=== PATIENT | female | born 1950 | race Caucasian/White ===

== ENCOUNTER 2020-08-17 10:00 | Outpatient (REF) | payer MEDICARE, SELFPAY ==
[2020-08-17 11:39] LABS: Estimated Average Glucose 123 mg/dL; Hemoglobin A1c % 5.9 %
[2020-08-17 12:22] LABS: Thyroid Stimulating Hormone 1.01 mIU/mL (0.32-4.0)
== END 2020-08-17 10:01 | disposition home or self-care (01) ==
LOC: HO.MANLDS 10:00
PROVIDERS: PCP Physician Assistant; Visit Provider Physician Assistant
DX: Z00.00 Encounter for general adult medical examination without abnormal findings (principal)
CPT/HCPCS: 83036; 84439; 84443

== ENCOUNTER 2020-11-14 11:40 | Outpatient (REF) | payer MEDICARE, SELFPAY ==
[2020-11-14 13:35] LABS: Alanine Aminotransferase 11 U/L (0-31); Albumin Level 4.1 g/dL (3.5-5.0); Alkaline Phosphatase 91 U/L (39-117); Anion Gap 12 (12-20); Aspartate Amino Transferase 16 U/L (5-31); Bilirubin Total 0.6 mg/dL (0.0-1.0); Blood Urea Nitrogen 9 mg/dL (9-16); Calcium 9.1 mg/dL (8.4-10.2); Carbon Dioxide 29 mmol/L (22-29); Chloride 105 mmol/L (96-108); Estimated Glomerular Filt Rate > 60; Glucose Random 114 mg/dL (60-115); Potassium 4.1 mmol/L (3.3-5.1); Sodium 142 mmol/L (135-145); Total Protein 6.4 g/dL (6.5-8.0)
[2020-11-14 14:20] LABS: Estimated Average Glucose 114 mg/dL; Hemoglobin A1c % 5.6 %
== END 2020-11-14 11:41 | disposition home or self-care (01) ==
LOC: HO.MANLR 11:40
PROVIDERS: PCP Internal Medicine; Visit Provider Physician Assistant
DX: E11.9 Type 2 diabetes mellitus without complications (principal)
CPT/HCPCS: 36415; 80053; 83036

== ENCOUNTER 2021-03-12 11:49 | Outpatient (REF) | payer MEDICARE, SELFPAY ==
[2021-03-12 13:49] LABS: Estimated Average Glucose 120 mg/dL; Hemoglobin A1c % 5.8 %
[2021-03-12 14:00] LABS: Alanine Aminotransferase 14 U/L (0-31); Albumin Level 4.4 g/dL (3.5-5.0); Alkaline Phosphatase 104 U/L (39-117); Anion Gap 13 (12-20); Aspartate Amino Transferase 20 U/L (5-31); Bilirubin Total 0.6 mg/dL (0.0-1.0); Blood Urea Nitrogen 9 mg/dL (9-16); Calcium 9.6 mg/dL (8.4-10.2); Carbon Dioxide 28 mmol/L (22-29); Chloride 105 mmol/L (96-108); Estimated Glomerular Filt Rate > 60; Glucose Fasting 129 mg/dL (60-99); Potassium 4.1 mmol/L (3.3-5.1); Sodium 142 mmol/L (135-145); Total Protein 6.8 g/dL (6.5-8.0)
== END 2021-03-12 11:50 | disposition home or self-care (01) ==
LOC: HO.MANLDS 11:49
PROVIDERS: PCP Internal Medicine; Visit Provider Physician Assistant
DX: E11.9 Type 2 diabetes mellitus without complications (principal)
CPT/HCPCS: 36415; 80053; 83036

== ENCOUNTER 2021-06-19 13:35 | Outpatient (REF) | payer MEDICARE, SELFPAY ==
[2021-06-19 18:18] LABS: Estimated Average Glucose 117 mg/dL; Hemoglobin A1c % 5.7 %
== END 2021-06-19 13:36 | disposition home or self-care (01) ==
LOC: HO.MANLDS 13:35
PROVIDERS: PCP Physician Assistant; Visit Provider Physician Assistant
DX: E11.9 Type 2 diabetes mellitus without complications (principal)
CPT/HCPCS: 36415; 83036

== ENCOUNTER 2021-12-17 10:17 | Outpatient (REF) | payer MEDICARE, SELFPAY ==
[2021-12-17 11:44] LABS: Estimated Average Glucose 117 mg/dL; Hemoglobin A1c % 5.7 %
[2021-12-17 12:26] LABS: Alanine Aminotransferase 14 U/L (0-31); Albumin Level 4.2 g/dL (3.5-5.0); Alkaline Phosphatase 84 U/L (39-117); Anion Gap 12 (12-20); Aspartate Amino Transferase 23 U/L (5-31); Bilirubin Total 0.7 mg/dL (0.0-1.0); Blood Urea Nitrogen 8 mg/dL (9-16); Calcium 9.7 mg/dL (8.4-10.2); Carbon Dioxide 31 mmol/L (22-29); Chloride 105 mmol/L (96-108); Estimated Glomerular Filt Rate > 60; Glucose Random 92 mg/dL (60-115); Potassium 4.7 mmol/L (3.3-5.1); Sodium 143 mmol/L (135-145); Total Protein 6.7 g/dL (6.5-8.0)
[2021-12-17 12:39] LABS: Thyroid Stimulating Hormone 0.02 uIU/mL (0.32-4.0)
== END 2021-12-17 10:18 | disposition home or self-care (01) ==
LOC: HO.MANLDS 10:17
PROVIDERS: PCP Physician Assistant; Visit Provider Physician Assistant
DX: E11.9 Type 2 diabetes mellitus without complications (principal); E03.9 Hypothyroidism, unspecified
CPT/HCPCS: 36415; 80053; 83036; 84439; 84443

== ENCOUNTER 2022-03-17 10:12 | Outpatient (REF) | payer MEDICARE, SELFPAY ==
[2022-03-17 11:57] LABS: Anion Gap 13 (12-20); Blood Urea Nitrogen 9 mg/dL (9-16); Calcium 9.5 mg/dL (8.4-10.2); Carbon Dioxide 28 mmol/L (22-29); Chloride 105 mmol/L (96-108); Estimated Glomerular Filt Rate > 60; Glucose Random 102 mg/dL (60-115); Potassium 4.7 mmol/L (3.3-5.1); Sodium 141 mmol/L (135-145)
== END 2022-03-17 10:13 | disposition home or self-care (01) ==
LOC: HO.MANLDS 10:12
PROVIDERS: Visit Provider Internal Medicine
DX: E87.5 Hyperkalemia (principal)
CPT/HCPCS: 36415; 80048

== ENCOUNTER 2022-08-01 10:26 | Outpatient (REF) | payer MEDICARE, SELFPAY ==
[2022-08-01 14:01] LABS: MANUAL DIFF FLAG NO
[2022-08-01 14:07] LABS: White Blood Count 6.5 X10*3/uL (4.8-10.8)
[2022-08-01 14:08] LABS: Basophils Absolute Auto 0.1 X10*3/uL (0.0-0.2); Basophils Percent Auto 1.2 % (0-2); Eosinophils Absolute Auto 0.1 X10*3/uL (0.0-0.4); Eosinophils Percent Auto 1.2 % (0-4); Hematocrit 39.3 % (37.0-47.0); Hemoglobin 12.5 g/dl (12.0-16.0); Imm Gran Abs Auto 0.02 X10*3/uL (0.00-0.03); Imm Gran Pct Auto 0.3 % (0.0-0.4); Lymphocytes Absolute Auto 1.8 X10*3/uL (1.2-4.9); Lymphocytes Percent Auto 27.9 % (20-40); Mean Corpuscular HGB Conc 31.8 g/dl (31.0-35.0); Mean Corpuscular Hemoglobin 29.1 pg (27.0-33.0); Mean Corpuscular Volume 91.4 fL (80.0-98.0); Monocytes Absolute Auto 0.5 X10*3/uL (0.1-1.2); Monocytes Percent Auto 7.1 % (2-11); Neutrophils Percent Auto 62.3 % (45-73); Platelet Count 309 X10*3/uL (160-400); Red Cell Distribution Width 13.6 % (11.0-16.0)
[2022-08-01 14:15] LABS: Estimated Average Glucose 117 mg/dL; Hemoglobin A1c % 5.7 %
[2022-08-01 14:22] LABS: Alanine Aminotransferase 11 U/L (0-31); Albumin Level 4.3 g/dL (3.5-5.0); Alkaline Phosphatase 99 U/L (39-117); Anion Gap 15 (12-20); Aspartate Amino Transferase 20 U/L (5-31); Bilirubin Total 0.6 mg/dL (0.0-1.0); Blood Urea Nitrogen 8 mg/dL (9-16); Calcium 9.7 mg/dL (8.4-10.2); Carbon Dioxide 31 mmol/L (22-29); Chloride 101 mmol/L (96-108); Cholesterol 173 mg/dL; Estimated Glomerular Filt Rate > 60; Glucose Random 85 mg/dL (60-115); HDL Cholesterol 83 mg/dL; LDL Cholesterol Calculated 64 mg/dl; Sodium 142 mmol/L (135-145); Total Protein 6.9 g/dL (6.5-8.0); Triglycerides 132 mg/dL
== END 2022-08-01 10:27 | disposition home or self-care (01) ==
LOC: HO.MANLDS 10:26
PROVIDERS: Visit Provider Physician Assistant
DX: Z13.89 Encounter for screening for other disorder (principal)
CPT/HCPCS: 36415; 80053; 80061; 83036; 85025

== ENCOUNTER 2023-03-16 11:28 | Outpatient (REF) | payer MEDICARE, SELFPAY ==
[2023-03-16 13:51] LABS: MANUAL DIFF FLAG NO
[2023-03-16 14:08] LABS: Basophils Absolute Auto 0.1 X10*3/uL (0.0-0.2); Basophils Percent Auto 1.5 % (0-2); Eosinophils Absolute Auto 0.2 X10*3/uL (0.0-0.4); Eosinophils Percent Auto 2.2 % (0-4); Hematocrit 41.3 % (37.0-47.0); Hemoglobin 12.9 g/dl (12.0-16.0); Imm Gran Abs Auto 0.02 X10*3/uL (0.00-0.03); Imm Gran Pct Auto 0.3 % (0.0-0.4); Lymphocytes Absolute Auto 1.8 X10*3/uL (1.2-4.9); Lymphocytes Percent Auto 23.7 % (20-40); Mean Corpuscular HGB Conc 31.2 g/dl (31.0-35.0); Mean Corpuscular Hemoglobin 27.5 pg (27.0-33.0); Mean Corpuscular Volume 88.1 fL (80.0-98.0); Mean Platelet Volume 10.1 fL (9.4-12.3); Monocytes Absolute Auto 0.6 X10*3/uL (0.1-1.2); Monocytes Percent Auto 7.1 % (2-11); Neutrophils Absolute Auto 5.1 x10*3/uL (2.0-8.3); Neutrophils Percent Auto 65.2 % (45-73); Platelet Count 309 X10*3/uL (160-400); Red Blood Count 4.69 X10*6/uL (4.20-5.50); Red Cell Distribution Width 14.8 % (11.0-16.0); White Blood Count 7.8 X10*3/uL (4.8-10.8)
[2023-03-16 14:30] LABS: Estimated Average Glucose 120 mg/dL; Hemoglobin A1c % 5.8 %
[2023-03-16 14:37] LABS: Alanine Aminotransferase 13 U/L (0-31); Alkaline Phosphatase 109 U/L (39-117); Anion Gap 14 (12-20); Aspartate Amino Transferase 19 U/L (5-31); Bilirubin Total 0.8 mg/dL (0.0-1.0); Blood Urea Nitrogen 9 mg/dL (9-16); Calcium 9.6 mg/dL (8.4-10.2); Carbon Dioxide 30 mmol/L (22-29); Chloride 106 mmol/L (96-108); Cholesterol 180 mg/dL; Estimated Glomerular Filt Rate > 60; Glucose Random 96 mg/dL (60-115); HDL Cholesterol 83 mg/dL; LDL Cholesterol Calculated 72 mg/dl; Potassium 5.8 mmol/L (3.3-5.1); Sodium 144 mmol/L (135-145); Total Protein 6.7 g/dL (6.5-8.0); Triglycerides 129 mg/dL
== END 2023-03-16 11:29 | disposition home or self-care (01) ==
LOC: HO.MANLDS 11:28
PROVIDERS: Visit Provider Physician Assistant
DX: E11.9 Type 2 diabetes mellitus without complications (principal); E78.2 Mixed hyperlipidemia
CPT/HCPCS: 36415; 80053; 80061; 83036; 85025

== ENCOUNTER 2023-03-20 11:57 | Outpatient (REF) | payer MEDICARE, SELFPAY ==
[2023-03-20 14:03] LABS: Alanine Aminotransferase 11 U/L (0-31); Alkaline Phosphatase 106 U/L (39-117); Anion Gap 13 (12-20); Aspartate Amino Transferase 18 U/L (5-31); Bilirubin Total 0.7 mg/dL (0.0-1.0); Blood Urea Nitrogen 7 mg/dL (9-16); Calcium 9.7 mg/dL (8.4-10.2); Carbon Dioxide 30 mmol/L (22-29); Chloride 102 mmol/L (96-108); Estimated Glomerular Filt Rate > 60; Glucose Random 96 mg/dL (60-115); Potassium 4.4 mmol/L (3.3-5.1); Sodium 141 mmol/L (135-145); Total Protein 6.7 g/dL (6.5-8.0)
== END 2023-03-20 11:58 | disposition home or self-care (01) ==
LOC: HO.MANLDS 11:57
PROVIDERS: Visit Provider Physician Assistant
DX: E11.9 Type 2 diabetes mellitus without complications (principal); E78.2 Mixed hyperlipidemia
CPT/HCPCS: 36415; 80053

== ENCOUNTER 2023-05-19 10:22 | Outpatient (REF) | payer MEDICARE, SELFPAY ==
[2023-05-19 13:18] LABS: MANUAL DIFF FLAG NO
[2023-05-19 14:03] LABS: Basophils Absolute Auto 0.1 X10*3/uL (0.0-0.2); Basophils Percent Auto 1.3 % (0-2); Eosinophils Absolute Auto 0.1 X10*3/uL (0.0-0.4); Eosinophils Percent Auto 1.1 % (0-4); Hematocrit 42.1 % (37.0-47.0); Hemoglobin 12.9 g/dl (12.0-16.0); Imm Gran Abs Auto 0.02 X10*3/uL (0.00-0.03); Imm Gran Pct Auto 0.3 % (0.0-0.4); Lymphocytes Absolute Auto 1.5 X10*3/uL (1.2-4.9); Lymphocytes Percent Auto 24.6 % (20-40); Mean Corpuscular HGB Conc 30.6 g/dl (31.0-35.0); Mean Corpuscular Hemoglobin 27.6 pg (27.0-33.0); Monocytes Absolute Auto 0.4 X10*3/uL (0.1-1.2); Monocytes Percent Auto 6.4 % (2-11); Neutrophils Absolute Auto 4.1 x10*3/uL (2.0-8.3); Neutrophils Percent Auto 66.3 % (45-73); Platelet Count 322 X10*3/uL (160-400); Red Blood Count 4.68 X10*6/uL (4.20-5.50); Red Cell Distribution Width 15.1 % (11.0-16.0); White Blood Count 6.1 X10*3/uL (4.8-10.8)
[2023-05-19 14:13] LABS: Alanine Aminotransferase 17 U/L (0-31); Alkaline Phosphatase 96 U/L (39-117); Anion Gap 13 (12-20); Aspartate Amino Transferase 19 U/L (5-31); Bilirubin Total 0.4 mg/dL (0.0-1.0); Blood Urea Nitrogen 9 mg/dL (9-16); Calcium 9.9 mg/dL (8.4-10.2); Carbon Dioxide 29 mmol/L (22-29); Chloride 105 mmol/L (96-108); Estimated Glomerular Filt Rate > 60; Glucose Random 130 mg/dL (60-115); Potassium 4.3 mmol/L (3.3-5.1); Sodium 143 mmol/L (135-145); Total Protein 7.2 g/dL (6.5-8.0)
[2023-05-21 15:03] LABS: A. Phagocytphilium DNA,RT-PCR NOT DETECTED (NOT DETECTED); Babesia Microti DNA, RT-PCR NOT DETECTED (NOT DETECTED); Borrelia Miyamotoi,DNA RT-PCR NOT DETECTED (NOT DETECTED); E.Chaffeensis DNA RT-PCR NOT DETECTED (NOT DETECTED); Lyme(Borrelia ssp)DNA RT-PCR NOT DETECTED (NOT DETECTED)
[2023-05-23 18:22] LABS: Spotted Fever Group IgG Not Detected (Not Detected); Spotted Fever Group IgM Not Detected (Not Detected); Typhus Fever Group IgG Not Detected (Not Detected); Typhus Fever Group IgM Not Detected (Not Detected)
== END 2023-05-19 10:23 | disposition home or self-care (01) ==
LOC: HO.MANLDS 10:22
PROVIDERS: Visit Provider Physician Assistant
DX: R50.81 Fever presenting with conditions classified elsewhere (principal)
CPT/HCPCS: 36415; 80053; 85025; 86757; 87798; 87801

== ENCOUNTER 2023-09-15 11:01 | Outpatient (REF) | payer MEDICARE, SELFPAY ==
[2023-09-15 13:21] LABS: MANUAL DIFF FLAG NO
[2023-09-15 13:35] LABS: Basophils Absolute Auto 0.1 X10*3/uL (0.0-0.2); Basophils Percent Auto 0.9 % (0-2); Eosinophils Percent Auto 0.5 % (0-4); Hemoglobin 9.1 g/dl (12.0-16.0); Imm Gran Abs Auto 0.03 X10*3/uL (0.00-0.03); Imm Gran Pct Auto 0.4 % (0.0-0.4); Lymphocytes Absolute Auto 1.5 X10*3/uL (1.2-4.9); Lymphocytes Percent Auto 17.8 % (20-40); Mean Corpuscular HGB Conc 29.4 g/dl (31.0-35.0); Mean Corpuscular Volume 85.2 fL (80.0-98.0); Mean Platelet Volume 9.6 fL (9.4-12.3); Monocytes Absolute Auto 0.5 X10*3/uL (0.1-1.2); Neutrophils Absolute Auto 6.3 x10*3/uL (2.0-8.3); Neutrophils Percent Auto 74.4 % (45-73); Platelet Count 429 X10*3/uL (160-400); Red Blood Count 3.64 X10*6/uL (4.20-5.50); Red Cell Distribution Width 14.9 % (11.0-16.0); White Blood Count 8.5 X10*3/uL (4.8-10.8)
[2023-09-15 13:43] LABS: Estimated Average Glucose 128 mg/dL; Hemoglobin A1c % 6.1 % (<6.0)
[2023-09-15 13:57] LABS: Alanine Aminotransferase 12 U/L (0-31); Albumin Level 3.4 g/dL (3.5-5.0); Alkaline Phosphatase 87 U/L (39-117); Anion Gap 14 (12-20); Aspartate Amino Transferase 24 U/L (5-31); Bilirubin Total 0.5 mg/dL (0.0-1.0); Blood Urea Nitrogen 6 mg/dL (9-16); Calcium 9.4 mg/dL (8.4-10.2); Carbon Dioxide 27 mmol/L (22-29); Chloride 102 mmol/L (96-108); Cholesterol 126 mg/dL (<200); Estimated Glomerular Filt Rate > 60; Glucose Random 101 mg/dL (60-115); HDL Cholesterol 68 mg/dL (>40); LDL Cholesterol Calculated 42 mg/dL (<100); Potassium 3.7 mmol/L (3.3-5.1); Sodium 139 mmol/L (135-145); Total Protein 7.8 g/dL (6.5-8.0); Triglycerides 81 mg/dL (<150)
[2023-09-15 14:26] LABS: Free T4 (Free Thyroxine) 1.14 ng/dL (0.71-1.85); Thyroid Stimulating Hormone 6.14 uIU/mL (0.32-4.0)
== END 2023-09-15 11:02 | disposition home or self-care (01) ==
LOC: HO.MANLDS 11:01
PROVIDERS: Visit Provider Physician Assistant
DX: E11.9 Type 2 diabetes mellitus without complications (principal); E03.8 Other specified hypothyroidism
CPT/HCPCS: 36415; 80053; 80061; 83036; 84439; 84443; 85025

== ENCOUNTER 2023-11-02 10:27 | Outpatient (REF) | payer MEDICARE, SELFPAY ==
[2023-11-02 13:16] LABS: Uric Acid 4.3 mg/dL (2.4-5.7)
== END 2023-11-02 10:28 | disposition home or self-care (01) ==
LOC: HO.MANLDS 10:27
PROVIDERS: Visit Provider Physician Assistant
DX: M10.072 Idiopathic gout, left ankle and foot (principal)
CPT/HCPCS: 36415; 84550

== ENCOUNTER 2024-12-20 11:55 | Outpatient (REF) | payer MEDICARE, SELFPAY ==
[2024-12-20 13:25] LABS: MANUAL DIFF FLAG NO
[2024-12-20 13:50] LABS: Basophils Absolute Auto 0.1 X10*3/uL (0.0-0.2); Basophils Percent Auto 1.7 % (0-2); Eosinophils Absolute Auto 0.1 X10*3/uL (0.0-0.4); Eosinophils Percent Auto 1.3 % (0-4); Hematocrit 23.8 % (37.0-47.0); Imm Gran Abs Auto 0.02 X10*3/uL (0.00-0.03); Imm Gran Pct Auto 0.3 % (0.0-0.4); Lymphocytes Absolute Auto 1.1 X10*3/uL (1.2-4.9); Mean Corpuscular HGB Conc 26.5 g/dl (31.0-35.0); Mean Corpuscular Hemoglobin 17.8 pg (27.0-33.0); Mean Corpuscular Volume 67.2 fL (80.0-98.0); Mean Platelet Volume 9.9 fL (9.4-12.3); Monocytes Absolute Auto 0.4 X10*3/uL (0.1-1.2); Monocytes Percent Auto 6.1 % (2-11); Neutrophils Absolute Auto 5.1 x10*3/uL (2.0-8.3); Neutrophils Percent Auto 74.6 % (45-73); Platelet Count 449 X10*3/uL (160-400); Red Blood Count 3.54 X10*6/uL (4.20-5.50); Red Cell Distribution Width 19.2 % (11.0-16.0); White Blood Count 6.9 X10*3/uL (4.8-10.8)
[2024-12-20 13:56] LABS: Hemoglobin 6.3 g/dl (12.0-16.0)
[2024-12-20 14:00] LABS: Estimated Average Glucose 137 mg/dL; Hemoglobin A1c % 6.4 % (<6.0)
[2024-12-20 14:37] LABS: Alanine Aminotransferase 10 U/L (0-31); Alkaline Phosphatase 104 U/L (39-117); Anion Gap 11 (12-20); Aspartate Amino Transferase 22 U/L (5-31); Bilirubin Total 0.8 mg/dL (0.0-1.0); Blood Urea Nitrogen 8 mg/dL (9-16); Calcium 9.1 mg/dL (8.4-10.2); Carbon Dioxide 27 mmol/L (22-29); Chloride 110 mmol/L (96-108); Cholesterol 122 mg/dL (<200); Estimated Glomerular Filt Rate > 60; Glucose Random 116 mg/dL (60-115); HDL Cholesterol 61 mg/dL (>40); LDL Cholesterol Calculated 44 mg/dL (<100); Potassium 3.7 mmol/L (3.3-5.1); Sodium 144 mmol/L (135-145); Total Protein 7.5 g/dL (6.5-8.0); Triglycerides 87 mg/dL (<150)
--- OUTSIDE RECORDS SUMMARY | 2024-12-20 14:41 | XMS_ITS | Data Portability ---
Author Organization [facility] Service Address [address] [place] [address] Assessment Encounter Date Assessment Date Assessment LastModified by Organization Details LastModified Time 10/13/2023 10/13/2023 Patient agreed and verbally consents to this audio and video Telehealth appt via a secure platform [email or web address] Not available 10/13/2023 14:21:57 Plan of Treatment Reminders Order Date Submit Date Provider Last Modified By Organization Details Last Modified Time Details Appointments ANNUAL EXAM 2024 01:30P RANJANA TYLER Not available Not available Not available Lab CMP, serum or plasma 2023 024 [facility], [address] [place] [address], [id number], 03/28/2024 13:48:31 CBC w/ auto diff 2023 024 [facility], [address] [place] [address], [id number], 03/28/2024 13:48:31 lipid panel, blood 2023 024 [facility], [address] [place] [address], [address], 03/28/2024 13:48:31 vitamin D, 25-hydrox y, total, serum 2023 024 [facility], [address] [place] [address], [id number], 03/28/2024 13:48:30 TSH + free T4, serum 2023 024 [facility], [address] [place] [address], [address], 03/28/2024 13:48:31 hemoglobi n A1c, QN, blood 2023 024 [facility], [address] [place] [address], [address], 03/28/2024 13:48:30 uric acid, serum or plasma 2023 024 [facility], [address] [place] [address], [address], 11/03/2023 11:45:58 TSH + free T4, serum 2022 023 [facility], [address] [place] [address], [address], 08/11/2023 15:25:46 CBC w/ auto diff 2022 023 [facility], [address] [place] [address], [address], 05/20/2023 12:04:55 CMP, serum or plasma 2022 023 [facility], [address] [place] [address], [id number], 05/20/2023 12:04:55 anaplasma phagocyto philum (hga/hge) igg+igm Ab, serum 2022 023 [facility], [address] [place] [address], [address], 05/19/2023 10:20:39 ehrlichia chaffeens is, igg+igm Ab, serum 2022 023 [facility], [address] [place] [address], [address], 05/19/2023 10:20:39 lyme disease igg+igm, serum, reflex western blot 2022 023 [facility], [address] [place] [address], [address], 05/22/2023 12:39:25 Rickettsi a rickettsi i IgG Ab, QL, IA, Serum or Plasma 2022 023 [facility], [address] [place] [address], [id number], 05/19/2023 10:20:39 Referral None recorded. Procedures None recorded. Surgeries None recorded. Imaging None recorded. Medication Orders doxycycli ne hyclate 100 mg tablet 2022 023 [id number], [address] [place], [place], [id number], 08/11/2023 15:02:45 Patient TargetsNo targets recorded. Patient InstructionsNo instructions recorded. Reason for Referral None Reported. Results Created Date Observation Date Name Description Value Unit Range Abnormal Flag Note LastModifiedBy Organization Detail LastModifiedTime 09/02/20 23 09/02/2023 MAMMO , scree chasity, digit al, bilat eral No observ ation record ed. [email or web address] [facility] [address] [place], [address], 09/02/2023 17:51:31 04/18/20 24 04/18/2024 XR, wrist , 3 or more view No observ ation record ed. [email or web address] [facility] (Scheduling Dept) [address] [place], [address], 04/19/2024 13:54:07 09/15/20 24 09/15/2024 MAMMO , scree chasity, digit al, bilat eral No observ ation record ed. [email or web address] Not Available 2023 14:46:00 Result Notes None recorded. Problems Name Problem SNOMED Code Status Onset Date Resolution Date Notes Provider Name and Address Organization Details Recorded Time Hypothyro idism 49748637 Active 2020 Not Available [facility] 4 21:02:59 Hyperlipi demia 24912752 Active 2020 Not Available [facility] 4 21:02:59 Pain of left knee region 596286567692 109 Active 2021 Not Available [facility] 4 21:02:59 Osteoarth ritis of left knee joint 220223752508 109 Active 2021 Not Available [facility] 4 21:02:59 Pain of left knee joint 561666778810 107 Active 2022 Not Available [facility] 4 21:02:59 Fever with chills 909717516 Active 2022 Not Available [facility] 4 21:02:59 Generaliz ed rash 868893589 Active 2022 Not Available [facility] 4 21:02:59 Sepsis 36059167 Active 2022 Not Available [facility] 4 21:02:59 Insomnia 629574420 Active 2022 Not Available [facility] 4 21:02:59 Gout 44592882 Active 2023 RANJANA SANCHEZ [address] [place] [address], [address], [facility] 4 15:55:01 Prostheti c joint infection 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 Active 2023 RANJANA SANCHEZ [address] [place], [address], [facility] 4 16:01:18 Pain of right wrist 931737898767 100 Active 2023 RANJANA SANCHEZ [address] [place], [address], [facility] 4 10:32:19 Essential hypertens ion 72410275 Active 2017 Not Available [facility] 4 21:02:59 Obstructi ve sleep apnea syndrome 96300701 Active 2017 Not Available Replaced by [facility] 4 21:02:59 Metabolic syndrome X 847035074 Active 2017 Not Available Replaced by [facility] 4 21:02:59 Type 2 diabetes mellitus 30751189 Active 2017 Not Available Replaced by [facility] 4 21:02:59 Impaired fasting glycemia 706129104 Active 2017 Not Available Replaced by [facility] 4 21:02:59 BRCA2 gene mutation detected 250818208 Active 2017 Not Available Replaced by [facility] 4 21:02:59 Anxiety 04740032 Active 2017 Not Available Replaced by [facility] 4 21:02:59 Glaucoma 60228196 Active 2017 Not Available Replaced by [facility] 4 21:02:59 Problem Notes None recorded. Procedures Surgical History Date Name Laterality Status Provider Name and Address Organization Details Recorded Time 8 Colonoscopy completed [facility] 08/18/2018 11:29:44 Imaging Results Imaging Date Name Status LastModified by Organiz ation Details LastModified Time 09/02/2023 MAMMO, screening, digital, bilateral completed [email or web address] [facility] [address], [address], 09/02/2023 17:51:31 04/18/2024 XR, wrist, 3 or more view completed [email or web address] [facility] (Scheduling Dept) [address] [place], [address], 04/19/2024 13:54:07 09/15/2024 MAMMO, screening, digital, bilateral completed [email or web address] Information not available 09/15/2024 14:46:00 Procedure Notes None recorded. Medical Equipment None Reported. Allergies Allergen ID Allergen Name Allergen Category Reaction Reaction Severity Criticality Documentation Date Start Date Code Code System Note Provider Name and Address Organization Details Recorded Time 1665 diclofena c Not available anaphylax is Not available Not available 04/02/2018 3355 RxNorm [facility] 8 10:30:22 7714 nickel environme nt Not available Not available Not available 10/30/2023 99242 29 RxNorm Estela jimenez [facility] 4 15:38:38 Medications Name Sig Start Date Stop Date Status Note LastModified by Organization Details LastModified Time compound drug active Not Available Not Available Not Available metformin 500 mg tablet 03/18 completed Not Available Not Available Not Available anastrozole 1 mg tablet Take 1 tablet every day by oral route. 11/21 completed Not Available Not Available Not Available venlafaxine 75 mg tablet TAKE 1 TABLET DAILY active Not Available Not Available No t Available azithromyci n 250 mg tablet TAKE 2 TABLETS BY MOUTH ON DAY 1 THEN 1 TABLET ON DAYS 2 THROUGH 5 12/25 completed Not Available Not Available Not Available metoprolol succinate ER 50 mg tablet,exte nded release 24 hr TAKE 1 TABLET ONCE DAILY (TAKE CONSISTEN TLY WITH A MEAL OR ON AN EMPTY STOMACH) 12/25 completed Not Available Not Available Not Available Levoxyl 100 mcg tablet Take 1 tablet every day by oral route. 09/27 completed Not Available Not Available Not Available penicillin V potassium 500 mg tablet 10/13 completed Not Available Not Available Not Available amlodipine 5 mg tablet TAKE 1 TABLET DAILY 2024 active Not Available Not Available Not Avai lable sulfamethox azole 800 mg-trimetho prim 160 mg tablet TAKE 1 TABLET BY MOUTH TWICE DAILY FOR 2 DOSES 10/21 completed Not Available Not Available Not Available tramadol 50 mg tablet TAKE 1 TABLET BY MOUTH EVERY 8 HOURS NEEDED 10/21 completed Not Available Not Available Not Available acetaminoph en 500 mg tablet TAKE 2 TABLETS BY MOUTH EVERY 8 HOURS active Not Available Not Available No t Available ofloxacin 0.3 % ear drops INSTILL 10 DROPS TO LEFT EAR DAILY FOR 7 DAYS 10/30 completed Not Available Not Available Not Available famotidine 20 mg tablet 05/15 completed Not Available Not Available Not Available DOK 100 mg capsule TK ONE C PO BID 06/28 completed Not Available Not Available Not Available omeprazole 20 mg capsule,del ayed release 10/21 completed Not Available Not Available Not Available capsaicin 0.025 % topical cream APPLY TO THE AFFECTED AREA(S) BY TOPICAL ROUTE 3 TIMES PER DAY 05/19 completed Not Available Not Available Not Available zolpidem 5 mg tablet TAKE 1 TABLET BY MOUTH EVERY DAY 2024 active Not Available Not Available Not Avai lable Synthroid 112 mcg tablet TAKE 1 TABLET DAILY (DUE FOR BLOOD WORK) active Not Available Not Available No t Available gabapentin 100 mg capsule 10/21 completed Not Available Not Available Not Available metoprolol succinate ER 25 mg tablet,exte nded release 24 hr TAKE 1 TABLET DAILY IN ADDITION TO METOPROLO L 50 MG FOR A TOTAL OF 75 MG 12/25 completed Not Available Not Available Not Available Zestril 40 mg tablet TAKE 1 TABLET DAILY 12/20 completed Not Available Not Available Not Available ondansetron 4 mg disintegrat ing tablet 05/15 completed Not Available Not Available Not Available doxycycline hyclate 100 mg tablet TAKE 1 TABLET BY MOUTH TWICE DAILY FOR 5 DAYS 08/11 completed Not Available Not Available Not Available naproxen 500 mg tablet 10/21 completed Not Available Not Available Not Available amoxicillin 875 mg-potassiu m clavulanate 125 mg tablet 03/23 completed Not Available Not Available Not Available oxycodone 5 mg tablet TAKE 1 TABLET BY MOUTH EVERY 4 HOURS FOR 7 DAYS NEEDED 10/30 completed Not Available Not Available Not Available enoxaparin 40 mg/0.4 mL subcutaneou s syringe 10/30 completed Not Available Not Available Not Available rosuvastati n 10 mg tablet TAKE 1 TABLET DAILY active Not Available Not Available No t Available penicillin G pot 1 million unit/50 mL-dextrose intravenous piggyback Infuse 18 million units every 6 hours by intraveno us route. 10/30 completed Not Available Not Available Not Available magnesium 10/30 completed Not Available Not Available Not Available zinc 10/30 completed Not Available Not Available Not Available Vitamin D3 1000 units qd active Not Available Not Available No t Available Calcium 600 with Vitamin D3 qd active Not Available Not Available N ot Available GaviLyte-G 236 gram-22.74 gram-6.74 gram-5.86 gram oral solution 05/15 completed Not Available Not Available Not Available metoprolol succinate ER 50 mg capsule sprinkle, ext. release 24 hr Take 1 capsule every day by oral route. 04/27 completed Not Available Not Available Not Available Fluad Quad [id number](6 5yr up)(PF) 60 mcg (15 mcg x 4)/0.5mL IM syringe ADMINISTE R 0.5ML IN THE MUSCLE DIRECTED 02/20 completed Not Available Not Available Not Available Vitals Date Recorded Body height Body mass index (BMI) Body weight Heart rate Oxygen saturation Oxygen saturation in Arterial blood by Pulse oximetry Systolic blood pressure Diastolic blood pressure Provider Name and Address Organization Details Last Updated DateTime 3 165.1 cm 28.5 kg/m2 75034.3 g 86 /min 97 % 97 % 130 mm[Hg] 66 mm[Hg] Yaneth Banda [facility] 3 10:08:43 Date Recorded Body height Body mass index (BMI) Body weight Heart rate Oxygen saturation Oxygen saturation in Arterial blood by Pulse oximetry Systolic blood pressure Diastolic blood pressure Provider Name and Address Organization Details Last Updated DateTime 3 165.1 cm 28.6 kg/m2 31434.8 9 g 84 /min 97 % 97 % 128 mm[Hg] 72 mm[Hg] Rosalina Santiago [facility] 3 15:07:29 Date Recorded Body height Heart rate Oxygen saturation Oxygen saturation in Arterial blood by Pulse oximetry Systolic blood pressure Diastolic blood pressure Provider Name and Address Organization Details Last Updated DateTime 4 165.1 cm 62 /min 99 % 99 % 120 mm[Hg] 82 mm[Hg] Estela Marshall [facility] 4 15:41:41 Date Recorded Body height Body mass index (BMI) Body weight Heart rate Oxygen saturation Oxygen saturation in Arterial blood by Pulse oximetry Systolic blood pressure Diastolic blood pressure Provider Name and Address Organization Details Last Updated DateTime 4 165.1 cm 28.3 kg/m2 70445.7 g 81 /min 100 % 100 % 120 mm[Hg] 80 mm[Hg] Yaneth Banda [facility] 4 13:30:02 Social History Question Answer Notes LastModified by Organizat ion Details LastModified Time Tobacco Smoking Status Former Smoker Not Available Replaced by [facility] 08/14/2020 03:36:24 What Was The Date Of Your Most Recent Tobacco Screening? 03/28/2024 [email or web address] Information not available 03/28/2024 How Many Years Have You Smoked Tobacco? 30 [id number] Information not available 08/14/2020 Do You Or Have You Ever Used Any Other Forms Of Tobacco Or Nicotine? No [email or web address] Information not available 10/30/2023 Sex: Unknown Functional Status None recorded. Mental Status None recorded. Family History Nothing Reported. Medical History Condition Response Coronary Artery Disease N Other N Gout N Blood Diseases N Kidney Stones N Breast Cancer N Blood Transfusion N Lung Disease N Depression N COPD N Defects or Inherited Disease N Anxiety Disorder N Muscle, Joint, or Bone Problems N Obesity N Vision or Eye Problems N Arthritis N Infertility N Polyps N Mental Disorder N Cancer N Stroke N Varicosities N Endometriosis N Bladder or Kidney Problems N High Cholesterol N Liver Disease N Fibromyalgia N Headaches N Kidney Disease N Allergies/Hayfever N Heart Problems N Hospitalizations N Thyroid Problems N GI Problems N Eating Disorder N Skin Problems N Anemia N MRSA exposure N Constipation N Mental Illness N Diabetes N Ovarian Cancer N Seizures/Epilepsy N Tuberculosis N Congestive Heart Failure (CHF) N Eczema N Abuse/Domestic Violence N Diverticulitis N Asthma N Reflux/GERD N Hepatitis N Heart Disease N Pulmonary Embolism N Hypertension N Chicken Pox N Autism Spectrum Disorder (ASD) N Osteoporosis N Gynecological HistoryNo gynecological history recorded. Obstetrics History GPAL:G 0 P 0 0 0 0 Immunizations Vaccine Type Date Status Note Provider Nam e and Address Organization Details Recorded Time Influenza, split virus, quadrivalent, preservative 1 completed Not Available Replaced by [facility] 10/29/2023 21:02:59 Influenza, split virus, quadrivalent, preservative 2 completed Not Available Replaced by [facility] 10/29/2023 21:02:59 Pneumococcal conjugate PCV 13 8 completed Not Available Replaced by [facility] 10/29/2023 21:03:00 Influenza, split virus, quadrivalent, preservative 8 completed Not Available [facility] 10/29/2023 21:03:00 Influenza, split virus, quadrivalent, preservative 9 completed Not Available [facility] 10/29/2023 21:02:59 pneumococcal polysaccharide PPV23 9 completed Not Available [facility] 10/29/2023 21:03:00 Influenza, split virus, quadrivalent, preservative 0 completed Not Available [facility] 10/29/2023 21:03:00 Influenza, split virus, quadrivalent, preservative 0 completed Not Available [facility] 10/29/2023 21:03:00 COVID-19, mRNA, LNP-S, PF, 100 mcg/0.5mL dose or 50 mcg/0.25mL dose 1 completed Not Available [facility] 10/29/2023 21:03:00 COVID-19, mRNA, LNP-S, PF, 100 mcg/0.5mL dose or 50 mcg/0.25mL dose 1 completed Not Available Replaced by [facility] 10/29/2023 21:03:00 Past Encounters Encounter ID Performer Location Encounter Start Date Encounter Closed Date Diagnosis/Indication Diagnosis SNOMED-CT Code Diagnosis ICD10 Code Diagnosis Note [id number] January [facility] [address] [facility],[place] [address] 04/02/2018 10:17:56 04/02/2018 11:22:10 Hypothyroidism 11333508 E03.9 tsh elevated, will adjust the levothyrox ine from 100 to 112 Hypercholesterolemia 136 74220 E78.00 had stopped cholestero l med about a year ago cholestero l and LDL are elevated again Essential hypertension 53349116 I10 stable continue metoprolol , zestril Type 2 jj betes mellitus without complication 553874886 E11.9 very well controlled will skip a 3 month appointmen t as her dm is so well controlled f/u 6 months History of malignant neoplasm of breast 588132031 Z85.3 continues on anastrozol e without any reported sided effects Anxiety 33798686 F41.9 well controlled with [place]lafaxin e [id number] Yajaira [facility] [address] [facility],[place] [address] 09/27/2018 10:08:11 09/27/2018 10:47:46 Hypothyroidism 93893575 E03.9 thyroid normal. will continue 112 mcg dose Hypercholesterolemia 136 61767 E78.00 very well controlled with crestor Essential hypertension 26755976 I10 stable continue metoprolol , zestril Type 2 jj betes mellitus without complication 550543888 E11.9 well controlled , even despite poor diet habits History of malignant neoplasm of breast 849877163 Z85.3 continues on anastrozol e without any reported sided effects Anxiety 55525357 F41.9 well [place] [id number] [facility] [address] [facility],[place] [address] 11/05/2018 13:31:37 11/05/2018 14:10:49 Pre-surgery evaluation 709496591 Z01.818 patient is cleared for proposed cataract surgery of both her right and left lens. Per [facility] protocol she is deemed a low risk for this procedure. [id number] [facility] [address] [facility], [place] [address] 04/27/2019 13:26:46 04/27/2019 14:13:44 Hypothyroidism 82947357 E03.9 tsh elevated, will adjust the levothyrox ine from 100 to 112 Hypercholesterolemia 136 85097 E78.00 had stopped cholestero l med about a year ago cholestero l and LDL are elevated again Essential hypertension 78109491 I10 stable Type 2 jj betes mellitus without complication 685378561 E11.9 very well controlled previously History of malignant neoplasm of breast 562224275 Z85.3 continues on anastrozol e without any reported sided effects Anxiety 71082425 F41.9 well controlled with venlafaxin e Adult [facility] th examination 960912495 Z00.00 pt already scheduled for pneumovax Screening for osteoporosis 135257229 M85.80 Pain of ri ght ankle joint 3115485843 9294151 M25.571 Body mass index 30+ - obesity 804393485 Z68.34 [id number] [facility] [address] [facility], [place] [address] 10/25/2019 10:56:11 10/25/2019 11:46:52 Hypothyroidism 51902671 E03.9 normal as of 10/2019 Hypercholesterolemia 136 68356 E78.00 back on cholestero l med, with very good control Essential hypertension 97106380 I10 stable Type 2 jj betes mellitus without complication 791155131 E11.9 very well controlled History of malignant neoplasm of breast 423243322 Z85.3 continues on anastrozol e without any reported sided effects will continue until 10/2020 gets mammos at [facility] last done 05/2019 Anxiety 88131582 F41.9 well controlled with venlafaxin e Body mass index 30+ - obesity 105292379 Z68.34 [id number] RANJANA SANCHEZ [facility] [address] [facility] [address] 05/15/2020 10:19:53 05/15/2020 11:07:42 Adult health examination 998630717 Z00.00 needs to have TSH and A1c checked in three months Screening for cardiovascular system disease 868474026 Z13.6 already had her lipids done looked great doing really well Screening for malignant neoplasm of colon 453422079 Z12.11 was just seen in 2018 to have colonoscop y will be seen in three years, as she will go ever five years Screening for osteoporosis 570544721 Z13.820 just had bone density screening in 2019 she would like to wait to be rescreened in the future Screening mammography 24 653096 Z12.31 the patient had one last year in may has one scheduled for of this month [id number] RANJANA SANCHEZ [facility] [address] [facility] [address] 08/21/2020 10:24:43 08/21/2020 12:36:38 Essential hypertension 87516898 I10 BP elevated will do monitor Type 2 jj betes mellitus 77949616 E11.9 doing well started back on metformin after surgery Hypothyroidism 59148126 E03.9 continue 6 days instead of 7 [id number] RANJANA SANCHEZ [facility] [address] [facility],[place] [address] 11/21/2020 10:24:19 11/21/2020 11:10:55 Type 2 diabetes mellitus 13407365 E11.9 doing well started back on metformin after surgery Essential hypertension 97888106 I10 BP elevated will discuss medication at next appt Obstructiv e sleep apnea syndrome 55007335 G47.33 resolved with weight loss no longer uses CPAP [id number] RANJANA SANCHEZ [facility] [address] [facility],[place] [address] 03/18/2021 09:46:35 03/18/2021 10:23:57 Active or passive immunization 523803876 Z23 advised Adult heal th examination 369185723 Z00.00 needs to have TSH and A1c checked in three months Screening mammography 24 349016 Z12.31 needs repeat Heart murmur 47486917 R0 1.1 US for new murmur [id number] RANJANA SANCHEZ [facility] [address] [facility] [address] 04/24/2021 09:51:56 04/24/2021 11:57:58 Diastolic dysfunction 6728819 I51.9 will set up with cardiology for fu Aortic ana ve regurgitation 96238411 I35.1 [id number] RANJANA SANCHEZ [facility] [address] [facility] [address] 06/28/2021 08:55:30 06/28/2021 16:40:17 Essential hypertension 84820212 I10 BP elevated will discuss medication at next appt Type 2 jj betes mellitus 24680559 E11.9 excellent off of the medication Hypothyroidism 03409141 E03.9 continue 6 days instead of 7 Hyperlipidemia 30383812 E78.5 stablefoll ows with cardiology [id number] RANJANA SANCHEZ [facility] [address] [facility] [address] 12/25/2021 09:53:10 12/25/2021 16:49:49 Impaired fasting glycemia 868429303 R73.01 stable Hypothyroidism 52314351 E03.8 will reduce 5 days Type 2 jj betes mellitus 97258620 E11.9 excellent off of the medication Essential hypertension 30300585 I10 BP stable on recheck [id number] RANJANA SANCHEZ [facility] [address] [facility] [address] 01/20/2022 09:40:03 01/20/2022 11:38:15 Pain of left knee region 4168279272 05552 M25.562 will fu with XRs [id number] RANJANA SANCHEZ [facility] Internal Medicine [address] [facility] [address] 03/21/2022 08:51:36 03/21/2022 12:23:50 Active or passive immunization [id number] Z23 advised Adult heal th examination 227991513 Z00.00 needs to have TSH and A1c checked in three monthsBP is excellent [id number] RANJANA SANCHEZ [facility] Internal Medicine [address] [facility] [facility] [address] 04/16/2022 08:03:36 04/16/2022 10:54:00 Pre-surgery evaluation [id number] Z01.818 The patient was seen in the office today for pre-op evaluation . All medical conditions on patient's problem list were addressed and are currently stable, no interventi on needed at this time. Based on history and physical performed, the patient is cleared for surgery. Obstructiv e sleep apnea syndrome 40492253 G47.33 stable Type 2 jj betes mellitus 41137651 E11.9 stable Essential hypertension 31314913 I10 stable [id number] RANJANA SANCHEZ [facility] Internal Medicine [address] [facility],[place] [address] 10/21/2022 11:26:14 10/21/2022 13:50:57 Type 2 diabetes mellitus 61528271 E11.9 stable Essential hypertension 56120767 I10 stable Hyperlipidemia 50962669 E78.2 stablefoll ows with cardiology Anxiety 21015183 F41.1 stable [id number] RANJANA SANCHEZ [facility] Internal Medicine [address] [facility] [address] 03/23/2023 13:24:23 03/23/2023 14:43:32 Active or passive immunization 954179810 Z23 advised Adult heal th examination 202380807 Z00.00 BW is excellentB P is excellent Type 2 jj betes mellitus 37333895 E11.9 stable Pain of le ft knee joint 9400610853 93664 M25.562 needs ortho referral to Dr. Carlson who [facility] [id number] RANJANA SANCHEZ [facility] [address] [facility] [address] 05/19/2023 09:54:52 05/19/2023 11:38:24 Fever with chills 400890477 R50.81 fu with lab workwill call pt when results are in Generalized rash 9177097 06 R21 lotion, cortizone cream if needed [id number] RANJANA SANCHEZ [facility] [address] [facility] [address] 08/11/2023 14:53:06 08/11/2023 15:57:31 Sepsis 94924671 R65.20 stable Hypothyroidism 19236968 E03.8 will recheck levels in a few weeks to see if the affected by the infection [id number] RANJANA SANCHEZ [facility] Internal Medicine [address] [facility] [address] 10/13/2023 08:34:33 10/13/2023 15:51:17 Sepsis 26263278 R65.20 resolved Type 2 jj betes mellitus 35924649 E11.9 stable Insomnia 718549744 G47.0 9 stablecont inue on ambien [id number] RANJANA SANCHEZ [facility] [address] [facility] [address] 10/30/2023 15:32:09 10/30/2023 16:38:28 Gout 47866900 M10.072 will set up with uric acidhaving issues with big toe, left toe Osteoarthr itis of left knee joint [id number] 34408 M17.12 still seeing her OA L knee joint Prosthetic joint infection 247327899 T84.52XA following with ID and [id number] RANJANA SANCHEZ [facility] [address] [facility] [address] 03/28/2024 13:23:28 03/28/2024 16:17:45 Depression screening 496162173 Z13.31 0 Adult heal th examination 540616030 Z00.00 BW is excellentB P is excellent Health Concerns Section Related Observation LastModified by Organization Detai ls LastModified Time None Recorded Concern Status LastModified by Organization Details LastModified Time None Recorded Advance Directives Directive None Recorded Payers Encounter Date Sequence Insurance Name Policy Number Policy Samayoa Covered Member ID Samayoa Member ID Guarantor Name 05/19/2023 1 [facility] (MEDICARE REPLACEMENT/A DVANTAGE - PPO) [id number] Dixie Blunt [id number] Dixie Blunt 08/11/2023 1 [facility] (MEDICARE REPLACEMENT/A DVANTAGE - PPO) [id number] Dixie Mickey Merlene [id number] Dixie Boyle 10/13/2023 1 [facility] (MEDICARE REPLACEMENT/A DVANTAGE - PPO) [id number] Dixie Arevalo Merlene [id number] Dixie Boyle 10/30/2023 1 [facility] (MEDICARE REPLACEMENT/A DVANTAGE - PPO) [id number] Dixierichardson Blunt [id number] Dixie Boyle 03/28/2024 1 [facility] (MEDICARE REPLACEMENT/A DVANTAGE - PPO) [id number] Dixie Arevalo Merlene [id number] Dixie Blunt Notes Date Note Type Note Provider Name a nd Address Organization Details Recorded Time 3 text/html c/o rash the patient reports that on Thursday she started with fever (subjective; didn't get to take it as her thermometer is broken)has a rash on the left side over her torso along her breastmaculopapular, not pruriticcould be a viral rash?does endorse possibly having an infected belly button does have a perforated ear drumusing drops she has left from last timecont those will set up with lab work to r/o other possibly causes also given doxy for her umbilicus in the meantime RANJANA SANCHEZ [address] [facility], [place], [address], [facility] Internal Medicine 05/19/2023 10:24:19 3 text/html hospital f/u the patient reports that she is doing wellher energy level the patient has a PIC line inseeing [facility] once [facility] week has PT in house and then will be switching over to [facility] rehab medication in chart have been reviewed will have her recheck her thyroid levels again in a few weeks no feverno chillsno chest painno sobno calf painno diarrheano nausea RANJANA SANCHEZ [address] [facility], [place], [address], [facility] Internal Medicine 08/11/2023 15:32:30 4 text/html f/u medication check tele-med phone callpatient consents to phone call the patient is doing really well on the ambienthe patient can't sleep due to the pain in the knee contacted specialist in [place] about her kneestill has no ROMand with the septic joint we are being careful about who she sees will fu with more info if the take her case RANJANA SANCHEZ [address] [place], [address], [facility] Internal Medicine 10/13/2023 14:23:08 4 text/html f/u knee pain the patient is here for f/u of her kneeshe did see her ortho and the ID for another culture of her joint fluid the patient reports that she is noticing some mild improvementthe patient reports that she will still be seeing PT will continue to follow with patient and her progress no other changes currentlyno change in medications RANJANA SANCHEZ [address] [facility], [place], [address], [facility] Internal Medicine 10/30/2023 16:11:24 4 text/html Annual WellnessReported bypatient.Diet and Nutrition:healthy diet; discussed vitamin and supplement use; discussed portion control; discussed maintaining calcium balance; discussed diet improvement Fracture Risk:no history of fractures; no recent explained fracture; no sudden unexplained fractures; no previous musculoskeletal injuries Physical Activity:exercises on a regular basis; recent increase in physical activity; good physical condition Additional Lifestyle Factors:no tobacco use; no alcohol intake; stopped drinking alcohol Depression Risk:never feels sad, empty, or tearful; no loss of interest in activities; no significant changes in weight; no sleep disturbances or insomnia; no agitation; no loss of energy; no feelings of worthlessness or guilt; no thoughts of suicide; no history of depression; no history of mood disorders the patient is still having knee pain in the Left knee after the septic infectionthe ortho declined intervention due to the severity of her previous infectionthe patient is doing really with the sleep medicationwill continue on the medication RANJANA SANCHEZ [address] [place] [address], [place], [address], [facility] Internal [facility] 03/28/2024 14:10:10 OBGyn Episode No OBEpisode recorded.
[2024-12-20 15:21] LABS: Thyroid Stimulating Hormone 8.78 uIU/mL (0.32-4.0)
== END 2024-12-20 11:56 | disposition home or self-care (01) ==
LOC: HO.MANLDS 11:55
PROVIDERS: Visit Provider Physician Assistant
DX: Z00.00 Encounter for general adult medical examination without abnormal findings (principal); Z13.1 Encounter for screening for diabetes mellitus; Z13.6 Encounter for screening for cardiovascular disorders
CPT/HCPCS: 36415; 80053; 80061; 82306; 83036; 84436; 84443; 85025

== ENCOUNTER 2024-12-27 14:51 | Outpatient (REF) | payer MEDICARE, SELFPAY ==
[2024-12-27 18:40] LABS: MANUAL DIFF FLAG NO
[2024-12-27 19:06] LABS: Basophils Absolute Auto 0.1 X10*3/uL (0.0-0.2); Basophils Percent Auto 1.4 % (0-2); Eosinophils Absolute Auto 0.1 X10*3/uL (0.0-0.4); Eosinophils Percent Auto 0.8 % (0-4); Hematocrit 29.2 % (37.0-47.0); Hemoglobin 7.8 g/dl (12.0-16.0); Imm Gran Abs Auto 0.04 X10*3/uL (0.00-0.03); Imm Gran Pct Auto 0.4 % (0.0-0.4); Lymphocytes Absolute Auto 1.3 X10*3/uL (1.2-4.9); Lymphocytes Percent Auto 14.5 % (20-40); Mean Corpuscular HGB Conc 26.7 g/dl (31.0-35.0); Mean Corpuscular Hemoglobin 19.5 pg (27.0-33.0); Monocytes Absolute Auto 0.6 X10*3/uL (0.1-1.2); Monocytes Percent Auto 6.8 % (2-11); Neutrophils Absolute Auto 6.9 x10*3/uL (2.0-8.3); Neutrophils Percent Auto 76.1 % (45-73); Platelet Count 482 X10*3/uL (160-400); Red Cell Distribution Width 23.9 % (11.0-16.0); White Blood Count 9.1 X10*3/uL (4.8-10.8)
[2024-12-27 19:29] LABS: Iron 466 mcg/dL (30-160); Percent Iron Saturation 95 % (15-50); Total Iron Binding Capacity 491 mcg/dL (228-428); Unsaturated Iron Binding < 25 ug/dL
== END 2024-12-27 14:52 | disposition home or self-care (01) ==
LOC: HO.MANLDS 14:51
PROVIDERS: Visit Provider Physician Assistant
DX: D50.0 Iron deficiency anemia secondary to blood loss (chronic) (principal)
CPT/HCPCS: 36415; 83540; 85025

== ENCOUNTER 2025-09-20 14:11 | Outpatient (REF) | payer MEDICARE, SELFPAY ==
[2025-09-20 18:20] LABS: MANUAL DIFF FLAG NO
[2025-09-20 18:40] LABS: Hematocrit 43.8 % (37.0-47.0); Hemoglobin 13.8 g/dl (12.0-16.0); Imm Gran Abs Auto 0.02 X10*3/uL (0.00-0.03); Imm Gran Pct Auto 0.2 % (0.0-0.4); Lymphocytes Absolute Auto 1.3 X10*3/uL (1.2-4.9); Mean Corpuscular HGB Conc 31.5 g/dl (31.0-35.0); Mean Corpuscular Hemoglobin 28.1 pg (27.0-33.0); Mean Corpuscular Volume 89.2 fL (80.0-98.0); NRBC Abs Auto 0.000 X10*3/uL (0.0-0.012); NRBC Pct Auto 0.0 /100WBC (0.0-0.2); Platelet Count 273 X10*3/uL (160-400); Red Blood Count 4.91 X10*6/uL (4.20-5.50); White Blood Count 8.7 X10*3/uL (4.8-10.8)
[2025-09-20 18:56] LABS: Alanine Aminotransferase 15 U/L (0-31); Albumin Level 4.5 g/dL (3.5-5.0); Alkaline Phosphatase 111 U/L (39-117); Anion Gap 11 (12-20); Aspartate Amino Transferase 25 U/L (5-31); Blood Urea Nitrogen 10 mg/dL (9-16); Calcium 9.4 mg/dL (8.4-10.2); Carbon Dioxide 32 mmol/L (22-29); Chloride 104 mmol/L (96-108); Estimated Glomerular Filt Rate > 60; Iron 85 mcg/dL (30-160); Percent Iron Saturation 32 % (15-50); Potassium 3.9 mmol/L (3.3-5.1); Sodium 143 mmol/L (135-145); Total Iron Binding Capacity 269 mcg/dL (228-428); Total Protein 7.4 g/dL (6.5-8.0); Unsaturated Iron Binding 184 ug/dL
[2025-09-20 19:14] LABS: Ferritin 106 ng/mL (10-250)
[2025-09-20 19:20] LABS: Folate 5.3 ng/mL (> or = 4.0); Vitamin B12 1777 pg/mL (200-900)
[2025-09-20 20:32] LABS: Free T4 (Free Thyroxine) 0.85 ng/dL (0.71-1.85)
--- OUTSIDE RECORDS SUMMARY | 2025-09-20 22:09 | XMS_ITS | Encounter Summary ---
Author Organization [facility] Address [email or web address] [facility] [address] [place] [address] Phone Care Team Providers Care Hotel Clerk Name Role Phone Otilia Story MD Unavailable Obed Richardson DO Unavailable Dionte Carrillo ASSISTANT SOFTBALL COACH Unavailable Valerie Workman SOAKING TANK WORKER Unavailable Obed Richardson DO Primary Care Provider [phone] Encounter Details Date Type Department Care Team ([facility] st Contact Info) Description 03/21/2025 Transcribe Orders [facility] [address] [place] [address] Obed Richardson DO [address] [facility] [place] [address] [email or web address] Social History Tobacco Use Types Packs/Day Years Used Date Smoking Tobacco: Former Cigarettes Q uit: 11/09/2000 Smokeless Tobacco: Never Alcohol Use Standard Drinks/Week Comments No 0 (1 standard drink = 0.6 oz pur e alcohol) Home Health Assessment: Transportation Answer Date Recorded Lack of Transportation (Medical) No 09/18/2023 Lack of Transportation (Non-Medical) No 09/18/2023 Patient Unable or Declines to Respond No 09/18/2023 Education Answer Date Recorded Are you interested in more education? Not on frieda e 02/06/2023 Are you concerned about learning? Not on file 02/06/2023 No 02/06/2023 No 02/06/2023 Digital Access Answer Date Recorded No 03/08/2023 No 03/08/2023 Reliable internet access at home? Not on file 03/08/2023 Device with a working camera? Not on file Intimate Partner Violence Answer Date R ecorded Are you denied basic needs s uch as food, clothing, or medical care? No 01/27/2025 In the past 12 months have y ou been in a relationship with a person who hurts, threatens, or tries to control you? No 01/27/2025 Are you denied basic needs s uch as food, clothing, or medical care? No 01/27/2025 In the past 12 months have y ou been in a relationship with a person who hurts, threatens, or tries to control you? No 01/27/2025 Comments No Sex and Gender Information Value Date Recorded Sex Assigned at Female 07/13/2023 10:37 AM EDT Legal Sex Female 7:04 PM EST Gender Identity Female 07/13/2023 10:37 AM EDT Sexual Orientation Straight 07/13/2023 10 :37 AM EDT documented as of this encounter Plan of Treatment Upcoming Encounters Date Type Department Care Team (Late st Contact Info) Description 10/09/2025 1:30 PM EST Office Visit Orthopedics [address] [address] Carlos Marquez MD [address] [place] [address] [email or web address] documented as of this encounter Visit Diagnoses Not on filedocumented in this encounter Care Teams Hotel Clerk Relationship Specialty Start Date End Date Obed Richardson DO [address] [place] [address] PCP - General Internal Medicine 12/20/24 Otilia Story MD [address] [place] [address] [email or web address] Historical LMR Provider 02/23/15 Obed Richardson DO [address] [place] [address] [email or web address] Referring Physician Internal Medicine 01/08/16 Dionte Carrillo, ZACKARY [address] [place] [address] [email or web address] Practitioner Oncology 05/30/19 Valerie Workman, FRANTZ [address] [place] [address] [email or web address] Registered Nurse Family Medicine 06/04/20 documented as of this encounter Additional Source Comments The information contained in this document represents components of the legal health record. It is not the complete legal health record.[facility]
--- OUTSIDE RECORDS SUMMARY | 2025-09-20 22:09 | XMS_ITS | Encounter Summary ---
Author Organization [facility] Address [address] [place] [address] [place] [address] Phone Care Team Providers Care Legal File Clerk Name Role Phone Obed Richardson DO Primary Care Provider [phone] Amie Abad MD Unavailable [phone] Constance Tang MD Unavailable [phone] Otilia Story MD Unavailable [phone] Obed Richardson DO Unavailable Obed Richardson DO Unavailable Erich Greer MD Unavailable Shelley Peck CHEMIST ORGANIC Unavailable María Fletcher DO Unavailable Jono Garrett MD Unavailable Blanquita Aden CHEMIST ORGANIC Unavailable Erich Mireles MD Unavailable Debbi Crump DNP Unavailable [phone] Dionte Carrillo LINER ROLL CHANGER Unavailable Valerie Workman CHEMIST ORGANIC Unavailable Obed Richardson DO Primary Care Provider [phone] Encounter Details Date Type Department Care Team (Late Contact Info) Description 11/20/2017 Ancillary Orders [facility], X-Ray - [facility] [address] [place] [address] Amanda South CNP [address] [place] [address] [email or web address] Right ankle pain, unspecified chronicity Social History Tobacco Use Types Packs/Day Years Used Date Smoking Tobacco: Former Comments Unknown Sex and Gender Information Value Date Recorded Sex Assigned at Female 07/13/2023 10:37 AM EDT Legal Sex Female 7:04 PM EST Gender Identity Female 07/13/2023 10:37 AM EDT Sexual Orientation Straight 07/13/2023 10 :37 AM EDT documented as of this encounter Plan of Treatment Upcoming Encounters Date Type Department Care Team (Late Contact Info) Description 10/09/2025 1:30 PM EST Office Visit Orthopedics [place] [address] [place] [address] Carlos Marquez MD [address] [place] [address] documented as of this encounter Results * XR ANKLE 3 OR MORE VIEWS (RIGHT) (11/20/2017 10:39 AM EST) Anatomical Region Laterality Modality Ankle Right Radiographic Mckayla ging 11/20/2017 11:0 5 AM EST Impressions 11/20/2017 11:13 AM EST Status post ORIF. Osseous fusion of the distal fibula and tibia laterally. Mild degenerative changes at the ankle. No other explanation for pain. POS - [id number] Narrative 11/20/2017 11:13 AM EST HISTORY: Pain medially, status-post ORIF. COMPARISON: Left ankle x-rays 09/23/2006. FINDINGS: Orthopedic hardware from old ORIF remains in place within the distal fibula. Two screws remain in place through the medial malleolus. Hardware appears intact and does not appear significant changed in position from 09/23/2016. No suspicious lucencies or areas of sclerosis within the bones. Bony fusion between the distal aspect of the medial fibula and lateral tibial no evidence of acute fractures. No subluxations or dislocations. Mild marginal spurring at the tibiotalar joint. Mild joint space narrowing. Similar small plantar calcaneal spur. Mild progression of enthesopathy at the insertion of the Achilles tendon. Procedure Note Jimmy Garcia MD - 11/20/2017 HISTORY: Pain medially, status-post ORIF. COMPARISON: Left ankle x-rays 09/23/2006. FINDINGS: Orthopedic hardware from old ORIF remains in place within the distalfibula. Two screws remain in place through the medial malleolus.Hardware appears intact and does not appear significant changed inposition from 09/23/2016. No suspicious lucencies or areas of sclerosiswithin the bones. Bony fusion between the distal aspect of the medialfibula and lateral tibial no evidence of acute fractures. No subluxationsor dislocations. Mild marginal spurring at the tibiotalar joint. Mildjoint space narrowing. Similar small plantar calcaneal spur. Mildprogression of enthesopathy at the insertion of the Achilles tendon. IMPRESSION: Status post ORIF. Osseous fusion of the distal fibula and tibialaterally. Mild degenerative changes at the ankle. No other explanationfor pain. POS - [id number] Amanda South LINER ROLL CHANGER IMG XR LOWER EXTREMITY Shirley l Result documented in this encounter Visit Diagnoses Diagnosis Right ankle pain, unspecified chronicity Right ankle pain, unspecified chronicity documented in this encounter Additional Health Concerns Infection Onset Date Last Indicated Resolved Time CoV-Risk 09/06/2021 09/06/2021 09/16/2021 1:22 AM EST CoV-Risk Comment:Per note documentation 07/13/2023 07/13/2023 11:03 AM EDT documented as of this encounter Care Teams Legal File Clerk Relationship Specialty Start Date End Date Obed Richardson DO PCP - General 02/16/15 12/19/24 Obed Richardson DO [address] [place] [address] PCP - General Internal Medicine 12/20/24 [place] [address] [place] [address] [email or web address] Historical LMR Provider 02/23/1509/28 Constance Tang MD [address] [place] [address] [email or web address] Historical LMR Provider 02/23/15 05/23/18 Otilia Story MD [address] [place] [address] [email or web address] Historical LMR Provider 02/23/15 Obed Richardson DO Referring Physician Internal Medicine 01/08/16 Obed Richardson DO [address] [place] [address] [email or web address] Historical LMR Provider 07/27/17 10/19/21 Erich Greer MD [address] [place] [address] [email or web address] Historical LMR Provider 07/27/17 05/23/18 Shelley Peck NP [address] [place] [address] [email or web address] Historical LMR Provider 07/27/17 María Fletcher DO [address] [place] [address] Historical LMR Provider 07/27/17 Jono Garrett MD [address] [place] [address] Historical LMR Provider 07/27/17 Blanquita Aden NP [address] [place] [address] Historical LMR Provider 07/27/17 Erich Mireles MD [address] [place] [address] Historical LMR Provider 07/27/17 Debbi Crump DNP [address] [place] [address] [email or web address] Oncology 05/24/18 05/29/19 Dionte Carrillo, ZACKARY [address] [place] [address] [email or web address] Nurse Practitioner Oncology 05/30/19 Valerie Workman NP [address] [place] [address] [email or web address] Registered Nurse Family Medicine 06/04/20 documented as of this encounter Additional Source Comments The information contained in this document represents components of the legal health record. It is not the complete legal health record.[facility]
--- OUTSIDE RECORDS SUMMARY | 2025-09-20 22:09 | XMS_ITS | Clinical Summary ---
Author Organization [facility] Address Formerly [facility] [employer] [facility] [address] [place] [phone] Phone Care Team Providers Care Maintenance Analyst Name Role Phone Polo Story MD Unavailable Sandra Yanez DO Unavailable Dionte Carrillo SCARFER OPERATOR Unavailable Valerie Workman ASSISTANT TO THE VICE PRESIDENT Unavailable Sandra Yanez DO Primary Care Provider Allergies Active Allergy Reactions Criticality Noted Date Comments Cephalosporins Angioedema,Itching,S hort ness Of Breath,Swelling High 11/06/2011 Diclofenac Anaphylaxis High Nickel Itching Low 05/13/2022 Reports itching to ears when wearing earrings made of inexpensive metals. Other Reaction(s): Not available Medications rosuvastatin (CRESTOR) 10 MG tablet rosuvastatin 10 mg tablet Active venlafaxine (EFFEXOR) 75 MG tablet venlafaxine 75 mg tablet TAKE 1 TABLET DAILY Active amLODIPine (NORVASC) 5 MG tablet TAKE 1 TABLET DAILY 90 tablet 3 2 Active acetaminophen (TYLENOL) 500 MG tablet acetaminophen 500 mg tablet TAKE 2 TABLETS BY MOUTH EVERY 8 HOURS 5 Active ferrous sulfate 143 mg (45 mg [place] iron) TbER Take 1 tablet (143 mg total) by mouth daily with breakfast. 60 tablet 5 Active biotin 1 mg tablet Take 1,000 mcg by mouth daily. Active cholecalcifero l (VITAMIN D3) 25 MCG (1,000 unit) tablet Take 1,000 Units by mouth daily. Active cyanocobalamin , vitamin B-12, 1000 MCG tablet Take 1,000 mcg by mouth daily. Active meloxicam (MOBIC) 7.5 MG tablet Take 7.5 mg by mouth daily. Active aspirin 81 mg chewable tablet Take 81 mg by mouth 2 (two) times a day. daily for 30 days Active oxyCODONE 5 MG immediate release tablet Take 5 mg by mouth every 4 (four) hours as needed for pain (specific location in comments). 1 tab for mod (4-6)pain, 2 tabs for severe (7-10) pain Active pantoprazole (PROTONIX) 40 MG tablet Take 40 mg by mouth daily. Active Active Problems Problem Noted Date Diagnosed Date Pleural effusion, left 07/17/2023 Assessment & Plan (07/18/2023 4:08 PM EDT): - Small left pleural effusion and retrocardiac consolidation found of CXR 07/16/23. Atelectasis vs infiltrate - monitoring resp status and markers of infection - if worsening symptoms, may need f/u xray Leukocytosis 07/16/2023 Bacteremia due to group B Streptococcus 07/14/20 Assessment & Plan (07/14/2023 3:09 PM EDT): Pt has heart murmur, recommend TTE. Pyogenic arthritis of left knee joint 07/13/2023 Septic arthritis 07/13/2023 Assessment & Plan (07/21/2023 5:44 PM EDT): - presented with sepsis due to septic arthritis of prosthetic knee and bacteremia with streptococcus agalactiae - hx S/p left total knee arthroplasty by Dr. Carlson in May 2022 - arthroscopic synovectomy of left knee with Dr. Thompson 07/15/23. Robust synovitis throughout knee, implant stable, and lavaged with arthroscopic fluid. Cultures taken. - Synovial fluid aspiration of left knee purulent Streptococcus agalactiae - Transthoracic echocardiogram without evidence of endocarditis -Continue IV penicillin G Antibiotic (drug, dose, route of administration, and frequency): Penicillin G 3 million units IV every 4 hours Additional Antibiotic(s): None Stop Antibiotic and Remove PICC: Not before 08/28/2023 - 07/16 blood cultures NGTD - picc placed 07/20 - ready for discharge to rehab or home - [facility] Assessment & Plan (07/14/2023 3:09 PM EDT): Group B Strep is sensitive to penicillin. Recommend discontinuation piperacillin-tazobactam and vancomycin. Recommend to start Penicillin G 3 million units IV every 4 hours (given history of angioedema with Duracef, would recommend obtaining vitals every 15 minutes for at least the first 30 minutes of the infusion). S/P total knee replacement using cement, left Post-traumatic osteoarthritis of left knee 02/19 Post-traumatic osteoarthritis of right knee 02/09 Proximal muscle weakness 02/19/2022 Left knee pain 01/20/2022 Hyperlipidemia 06/28/2021 Hypothyroidism 06/28/2021 Anxiety 03/31/2018 BRCA2 gene mutation positive 03/31/2018 Glaucoma 03/31/2018 Obstructive sleep apnea syndrome 03/31/2018 Type 2 diabetes mellitus 03/31/2018 Assessment & Plan (07/18/2023 4:04 PM EDT): - type 2 DM managed with diet chronically - hba1c 6.5 - cont current basal bolus insulin Right ankle pain 12/30/2017 Encounter for breast reconstruction following ma stectomy 03/21/2015 Hypertensive disorder 08/06/2012 Overview (03/21/2015): Hypertensive disorder Assessment & Plan (07/18/2023 4:03 PM EDT): - cont reduced doses amlodipine 2.5mg daily and lisinopril 20mg daily Assessment & Plan (03/17/2022 2:16 PM EDT): BP elevated on initial check at 158/84, rechecked for 144/84. He is on amlodipine 5 mg daily, Zestril 40 mg daily. She will continue her medication without change. She is here today for cardiac clearance prior to surgery. Per NSQIP she is an average surgical risk candidate for a low risk surgical procedure. There is no further cardiac testing needed prior to her surgery. She will follow-up with Dr. Bonds at her previously scheduled appointment in July S/P breast reconstruction 08/03/2012 Overview (12/02/2014): S/P Breast reconstruction Breast cancer 07/01/2010 Overview (03/21/2015): Breast cancer Resolved Problems Problem Noted Date Diagnosed Date Resolved Date Left arm swelling 07/18/2023 07/22/2023 Assessment & Plan (07/18/2023 4:09 PM EDT): - left arm swelling - ultrasound duplex LUE no DVT Serum phosphorus decreased 07/15/2023 1 Elevated LFTs 07/14/2023 07/22/2023 Assessment & Plan (07/18/2023 4:06 PM EDT): - likely due to sepsis and hypotension - RUQ abdominal ultrasound with no evidence of hepatic abscess - improving, cont to monitor Assessment & Plan (07/14/2023 3:10 PM EDT): Potential etiology for LFTs includes hypotension, sepsis, or bacteremia eminating from a hepatic abscess. Recommend RUQ abdominal ultrasound Sepsis 07/13/2023 07/22/2023 Thrombocytopenia 07/13/2023 07/22/2023 Assessment & Plan (07/18/2023 4:05 PM EDT): - Attributed to infection, markedly improved now - (received FFP before surgery) Assessment & Plan (07/14/2023 3:11 PM EDT): Potentially due to sepsis. Continue to monitor, may want to explore HIIT work-up if there is no improvement in pt's thrombocytopenia tomorrow Hypokalemia 07/13/2023 07/18/2023 Encounters Date Type Department Care Team Description 07/14/2025 10:15 AM EDT Office Visit [address] [address] Carlos Marquez MD Baran, [place] Anna, PT Acute pain of left knee (Primary Dx); S/P revision of total knee, left 07/10/2025 1:00 PM EDT Office Visit Orthopedics [address] [address] Carlos Marquez MD History of revision of total knee arthroplasty (Primary Dx) 07/05/2025 11:00 AM EDT Office Visit [address] [address] Carlos Marquez MD Truehart, Jane, EXECUTIVE DIRECTOR [employer] Acute pain of left knee (Primary Dx) 07/03/2025 1:45 PM EDT Office Visit [address] [address] Carlos Marquez MD Baran, Brooklyn Anna, PT Acute pain of left knee (Primary Dx); S/P revision of total knee, left 06/29/2025 10:00 AM EDT Office Visit [address] [address] Carlos Marquez MD Baran, [place] Anna, PT Acute pain of left knee (Primary Dx); S/P revision of total knee, left 06/27/2025 1:30 PM EDT Office Visit [address] [address] Carlos Marquez MD Truehart, Jane, EXECUTIVE DIRECTOR [employer] Acute pain of left knee (Primary Dx) from Last 3 Months Immunizations Immunization Administration Dates Next Due COVID-19 (Pre-08/03) Moderna Vaccine, mRNA, PF 01/29/2021,12/30/2020 Influenza High-Dose Quadriva lent Preservative Free IM 05/24/2021 Influenza High-Dose Trivalen t Preservative Free IM 07/06/2019,08/15/2018 Influenza Quadrivalent w/ Pr eservative IM 07/30/2020 Pneumococcal conjugate PCV13 08/15/2018 Pneumococcal polysaccharide PPSV23 08/22/2019,(Deferred: Other) Social History Tobacco Use Types Packs/Day Years Used Date Smoking Tobacco: Former Cigarettes Q uit: 11/09/2000 Smokeless Tobacco: Never Tobacco Cessation:Counseling Given: Not Answered Alcohol Use Standard Drinks/Week Comments No 0 (1 standard drink = 0.6 oz pur e alcohol) Home Health Assessment: Transportation Answer Date Recorded Lack of Transportation (Medical) Yes 05/05/2025 Lack of Transportation (Non-Medical) Yes 05/05/2025 Patient Unable or Declines to Respond No 05/05/2025 Education Answer Date Recorded Are you interested [...] Orientation Straight 07/13/2023 10 :37 AM EDT Last Filed Vital Signs Vital Sign Reading Time Taken Comments Blood Pressure 130/70 05/05/2025 2:40 PM EDT Pulse 77 05/05/2025 2:40 PM EDT Temperature 36.8 C (98.2 F) 05/02/2025 9:47 AM EDT Respiratory Rate 14 05/05/2025 2:40 PM EDT Oxygen Saturation 98% 05/05/2025 2:40 PM EDT Inhaled Oxygen Concentration - - Weight 83.5 kg (184 lb) 07/10/2025 1:02 PM EDT Height 165.1 cm (5' 5 ) 07/10/2025 1:02 PM EDT Body Mass Index 30.62 07/10/2025 1:02 PM EDT Plan of Treatment Upcoming Encounters Date Type Department Care Team (Late st Contact Info) Description 10/09/2025 1:30 PM EST Office Visit Orthopedics [place] [address] [place] [address] Carlos Marquez MD [address] [place] [address] Health Maintenance Due Date Last Done Comments Adult Td,Tdap Booster 1950 HEPATITIS C SCREENING 1968 ZOSTER VACCINES (1 of 2) 1969 COLOGUARD 1995 FOBT 1995 SIGMOIDOSCOPY 1995 VIRTUAL COLONOSCOPY 1995 DIABETIC EYE EXAM 09/06/2021 URINE MICROALBUMIN/CREATININE RATIO 09/06/2021 MAMMOGRAM 06/04/2022 06/04/2020, 11/2013, 03/12/2013, Additional history exists DEPRESSION SCREENING 10/28/2024 10/28/2023 INFLUENZA VACCINE (#1) 2025 , 07/06/2023, 05/30/2022, Additional history exists COVID-19 VACCINE ( season) 2025 01/29/2021, 12/30/2020 HEMOGLOBIN A1C 09/19/2025 03/20/2025, 1012/2022, 03/07/2022 BLOOD PRESSURE 11/05/2025 05/05/2025 RSV VACCINE (1 - 1-dose 75+ series) 2025 FIT TEST 01/19/2026 01/19/2025 SMOKING Hx and SMOKELESS TOBACCO SCREENING 07/10/2026 07/10/2025 COLONOSCOPY 01/27/2035 01/27/2025, 08/17/2018 COLORECTAL CANCER SCREENING 01/27/2035 OSTEOPOROSIS SCREENING INITIAL (ONE-TIME) Completed 07/08/2019, 05/01/2010 PNEUMOCOCCAL VACCINES (50+ years) Completed 08/22/2019, 08/15/2018 HEPATITIS A VACCINES Aged Out No long er eligible based on patient's age to complete this topic HIB VACCINES Aged Out No longer eligi ble based on patient's age to complete this topic MENINGOCOCCAL VACCINES (ACWY) Aged Out No longer eligible based on patient's age to complete this topic MENINGOCOCCAL VACCINES (B) Aged Out N o longer eligible based on patient's age to complete this topic Medical Devices Implanted Type Area Trailers [employer] Salesperson Device Identifier Shelf Expiration Date Model / Serial / Lot Knee Implant Component Size 9 Femoral Persona Fleetwood Cement Cruciate Retaining Narrow Left - [id number] Implanted:Qty: 1 on 05/13/2022 by Josiah Carlson MD at [facility] STANDARD Left: Knee ANGELINA / DIV OF [employer] 08/17/2031 [id number] / / [id number] Right Ankle Screws/Plates Bone Cement Antibiotic Refobacin - [id number] Implanted:Qty: 2 on 05/13/2022 by Josiah Carlson MD at [facility] Left: Knee ANGELINA / DIV OF [employer] 06/11/2024 [id number] / / [id number] Knee Cemented 35x9.0mm Patella All Poly Persona Vivacit E Highly Crossed Linked 06 Nc - [id number] Implanted:Qty: 1 on 05/13/2022 by Josiah Carlson MD at [facility] Left: Knee ANGELINA / DIV OF [employer] 02/10/2027 [id number] / / [id number] Knee Implant 5deg Component Tibial Persona Titanium Stemmed Cemented Lt Size E - [id number] Implanted:Qty: 1 on 05/13/2022 by Josiah Carlson MD at [facility] Left: Knee ANGELINA / DIV OF [employer] 12/17/2031 [id number] / / [id number] Knee Implant 12mm 8 11 Component Articular Surface Persona Polyethylene Vivacite E Cruciate Retaining Fixed Lt Ef - [id number] Implanted:Qty: 1 on 05/13/2022 by Josiah Carlson MD at [facility] Left: Knee ANGELINA / DIV OF [employer] 09/18/2025 [id number] / / [id number] Knee Implant 12mm 8 11 Component Articular Surface Persona Polyethylene Vivacite E Cruciate Retaining Fixed Lt Ef - [id number] Implanted:Qty: 1 on 07/17/2023 by Kd Thompson DO at [facility] Left: Knee ANGELINA BIOMET [id number] 05/21/2027 [id number] / / [id number] Procedures Procedure Name Priority Date/Time Associated Diagnosis Comments HEMOGLOBIN A1C Routine 03/20/2025 1:14 PM EDT Other specified pre-operative examination ENDOSCOPY, COLON 01/27/2025 8:11 AM EDT FECAL IMMUNOCHEMICAL BLOOD TEST X1 (FIT) Routine 01/19/2025 10:05 PM EDT Family history of colon cancer Iron deficiency anemia, unspecified iron deficiency anemia type BD DXA AXIAL (SPINE) WITH HIP Routine 07/08/2019 11:38 AM EDT Screening for osteoporosis BI MAMMOGRAM SCREENING Routine 4 1:32 PM EDT from Last 3 Months or Most Recently Relevant to Health Maintenance Results * Hemoglobin A1c (03/20/2025 1:14 PM EDT) HEMOGLOBIN A1C 5.6 4.3 - 5.8 % [facility] Blood 03/20/2025 1:14 PM EDT 03/20/2025 1:22 PM EDT us Asha CHILEL LAB BLOOD BKR ORDERABLES Fi nal Result [facility] [address] [place] [address] * ENDOSCOPY, COLON (01/27/2025 8:11 AM EDT) Narrative Transcriptions Jimmy Lara MD - 01/27/2025 8:11 AM EDT [facility] Patient Name: Dixie Blunt Attending MD:: JIMMY LARA MD, Procedure Date: 01/27/2025 8:11 AM Date of : 1950 Age: 74 Admit Type: Outpatient Gender: Female Room: [place] [address] Referring MD: SANDRA YANEZ DO Exam Type: Colonoscopy Indications: Iron deficiency anemia Medications: Monitored Anesthesia Care Procedure: Informed consent was obtained from the patientafter discussion of the indications, limitations, alternatives, benefits, and risks of the procedure. Risks specifically discussed include but are not limited to medication reactions, missed lesions, bleeding, perforation, or the need for emergent surgery. Throughout the procedure, the patient's blood pressure, pulse, end-tidal CO2, and oxygensaturations were monitored continuously. The Olympus adult variable colonoscope [id number] #[id number] was introduced through the anus and advanced to the terminal ileum. The colonoscopy was performedwithout difficulty. The patient tolerated the procedurewell. The quality of the bowel preparation was good. Anatomical landmarks were photographed. Complications: No immediate complications. Estimated blood loss:None. Findings: The perianal and digital rectal examinations were normal. The rectum, recto-sigmoid colon, sigmoid colon, descending colon, splenic flexure, transversecolon, hepatic flexure, ascending colon, cecum,appendiceal orifice, ileocecal valve, ileum, rectum (on retroflexion) and ascending colon (on retroflexion) appeared normal. Impression: - The rectum (on retroflexion), ascending colon (on retroflexion), rectum, sigmoid colon, descending colon, splenic flexure, transverse colon, hepatic flexure, ascending colon, cecum, recto-sigmoidcolon, ileocecal valve, appendiceal orifice and terminal ileum are normal. - No specimens collected. Recommendation: - Discharge patient to home. - Resume previous diet. - Continue present medications. - You should not require any further colonoscopy unless a symptom were to develop. Guidelinessuggest that screening exams may not be necessary after age75 JIMMY LARA MD 01/27/2025 8:39:39 AM This report has been signed electronically. Number of Addenda: 0 Note Initiated On: 01/27/2025 8:11 AM Procedure Code(s): --- Professional --- 34111, Colonoscopy, flexible; diagnostic, including collection of specimen(s) by brushing or washing, when performed (separateprocedure) --- Technical --- 46037, Colonoscopy, flexible; diagnostic, including collection of specimen(s) by brushing or washing, when performed (separateprocedure) Diagnosis Code(s): --- Professional --- D50.9, Iron deficiency anemia, unspecified --- Technical --- D50.9, Iron deficiency anemia, unspecified CPT copyright 2021 [employer]. All rights reserved. The codes documented in this report are preliminary and upon cold type composing machine operator reviewmay be revised to meet current compliance requirements. Procedure Date: 01/27/2025 8:11:[address] [place] [address] us Sandra A Bigda DO GI PROCEDURE ORDERABLES Final Re sult * Fecal immunochemical test x1 (FIT) (01/19/2025 10:05 PM EDT) Immuno Fecal Occult Negative Negative [facility] Stool (Stool) 01/19/2025 10: 05 PM EDT 01/20/2025 11:24 AM EDT us Asha Lau SCARFER OPERATOR LAB BODY FLUIDS AND STOOL ORDERABLES Final Result Performing Organization Address City/State/[facility] Co de Phone Number [facility] [address] [place] [address] * BD DXA AXIAL (SPINE) WITH HIP (07/08/2019 11:38 AM EDT) Anatomical Region Laterality Modality Bone Density Bone Density 07/08/2019 3:13 PM EDT Impressions 07/08/2019 3:15 PM EDT Marginal osteopenia in the left hip. There has been a statistically significant decrease in bone density at all 3 sites since the last exam. S/S: Screening for osteoporosis estrogen deficiency, bone density screening, osteopenia POS - [id number] Narrative 07/08/2019 3:15 PM EDT This is a 68-year-old postmenopausal patient. Evaluation of the lumbar spine and both hips is obtained and appears appropriate. The lumbar spine from L1 through L4 discloses a total bone mineral density of 1.036 g/cm2 with a T-score of -0.1. This is in the normal range. The change in bone mineral density since 10/02/2016 is -2.6% and is significant. The right hip has a total bone mineral density of 0.828 g/cm2 with a T-score of -0.9 this is in the normal range. The change in bone mineral density since 10/02/2016 is -6.3% and is significant. The left hip has a total bone mineral density of 0.813 g/cm2 for a T-score of -1.1. This is in the osteopenia range. The change in bone mineral density since 10/02/2016 is -5.0% and is significant. Procedure Note Marino Dubois MD - 07/08/2019 This is a 68-year-old postmenopausal patient. Evaluation of the lumbar spine and both hips is obtained and appearsappropriate. The lumbar spine from L1 through L4 discloses a total bone mineral densityof 1.036 g/cm2 with a T-score of -0.1. This is in the normal range. Thechange in bone mineral density since 10/02/2016 is -2.6% and issignificant. The right hip has a total bone mineral density of 0.828 g/cm2 with aT-score of - 0.9 this is in the normal range. The change in bone mineraldensity since 10/02/2016 is -6.3% and is significant. The left hip has a total bone mineral density of 0.813 g/cm2 for a T-scoreof - 1.1. This is in the osteopenia range. The change in bone mineraldensity since 10/02/2016 is -5.0% and is significant. IMPRESSION: Marginal osteopenia in the left hip. There has been a statisticallysignificant decrease in bone density at all 3 sites since the last exam. S/S: Screening for osteoporosis estrogen deficiency, bone densityscreening, osteopenia POS - [id number] January Oracio RIDDLE IMG BD BONE DENSITY DEXA Fin al Result * BI MAMMOGRAM SCREENING (03/13/2014 1:32 PM EDT) Anatomical Region Laterality Modality Breast Left, Breast Right, Breast Bilateral Mammography 03/13/2014 10:0 6 AM EDT Narrative 03/13/2014 1:32 PM EDT Exam Number: [id number] Report Status: Final Type: Unilateral Screening Mammo/CAD Date/Time: 03/13/2014 10:06 Exam Code: 7974/RIGHT Ordering Provider: CONSTANCE TANG MD REPORT: INDICATION: PRIOR LEFT MASTECTOMY FOR BREAST CANCER. NO CURRENT COMPLAINTS. Full Field Digital Mammography was used to obtain MLO and CC images. Computer Aided Detection was used to aid in interpretation. Comparison is made to films from 14-Mar-2013, 01-Mar-2012, and 24-Feb-2011. Right Breast Findings: There are scattered fibroglandular densities (11% - 50%). The patient has had a previous reduction mammoplasty. A 6 mm lucent nodule with faint associated calcification is present at 3:00 in the periareolar region, consistent with a small lipid cyst. Vascular calcification is noted. IMPRESSION: RIGHT BREAST - CATEGORY 2 S/P reduction mammoplasty. Small lipid cyst. Vascular calcification. Benign, no evidence of malignancy. Normal interval follow-up is recommended in 12 months. PATIENT WAS GIVEN A WRITTEN REPORT AT THE TIME OF THE STUDY. OVERALL ASSESSMENT - BENIGN END OF IMPRESSION This report was electronically signed by MYLES REYES MD(T) RADIOLOGISTS: SIGNATURES: MD AMY(T), MYLES REYES MD(T), MYLES Du Finalized on: 03/13/2014 13:32 Procedure Note Sys, Conversion Provider Not In - 12/06/2014 Exam Number: [id number] Report Status: Final Type: Unilateral Screening Mammo/CAD Date/Time: 03/13/2014 10:06 Exam Code: 7974/RIGHT Ordering Provider: CONSTANCE TANG MD REPORT: INDICATION: PRIOR LEFT MASTECTOMY FOR BREAST CANCER. NO CURRENT COMPLAINTS. Full Field Digital Mammography was used to obtain MLO and CCimages. Computer Aided Detection was used to aid in interpretation. Comparison is made to films from 14-Mar-2013, 01-Mar-2012, and 24-Feb-2011. Right Breast Findings: There are scattered fibroglandular densities (11% - 50%). Thepatient has had a previous reduction mammoplasty. A 6 mm lucent nodule with faint associated calcification is present at 3:00 in theperiareolar region, consistent with a small lipid cyst. Vascular calcificationis noted. IMPRESSION: RIGHT BREAST - CATEGORY 2 S/P reduction mammoplasty. Small lipid cyst. Vascularcalcification. Benign, no evidence of malignancy. Normal interval follow-up is recommended in 12 months. PATIENT WAS GIVEN A WRITTEN REPORT AT THE TIME OF THE STUDY. OVERALL ASSESSMENT - BENIGN END OF IMPRESSION This report was electronically signed by MYLES REYES MD(T) RADIOLOGISTS: SIGNATURES: MD AMY(T), MYLES REYES MD(T)MYLES Finalized on: 03/13/2014 13:32 Constance Tang MD [facility] Final Result from Last 3 Months or Most Recently Relevant to Health Maintenance Insurance [facility] MEDICARE REPLACEMENT MEDICARE PART A & B [facility] MEDICARE REPLACEMENT MEDICARE PART A & B [facility] MEDICARE REPLACEMENT MEDICARE PART A & B [facility] MEDICARE REPLACEMENT MEDICARE PART A & B [facility] MEDICARE REPLACEMENT MEDICARE PART A & B [facility] MEDICARE REPLACEMENT MEDICARE PART A & B [facility] MEDICARE REPLACEMENT MEDICARE PART A & B [facility] MEDICARE REPLACEMENT MEDICARE PART A & B 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 07/23/2023 10:47 AM * Full Code (Latest Code Status on File) Date Activated Date Inactivated Comments 07/13/2023 5:52 PM Question Answer Comments Code Status Confirmed With: Patient * Full Code Date Activated Date Inactivated Comments 05/13/2022 6:01 AM 07/13/2023 5:52 PM Question Answer Comments Code Status Confirmed With: Patient Care Teams Maintenance Analyst Relationship Specialty Start Date End Date Sandra Yanez DO [address] [place] [id number] [email or web address] PCP - General Internal Medicine 12/20/24 Polo Story MD [address] [place] [address] [email or web address] Historical LMR Provider 02/23/15 Sandra Yanez DO [address] [place] [address] [email or web address] Referring Physician Internal Medicine 01/08/16 Dionte Carrillo, ZACKARY [address] [place] [id number] [email or web address] Practitioner Oncology 05/30/19 Valerie Workman, FRANTZ [address] [place] [id number] [email or web address] Registered Nurse Family Medicine 06/04/20 Additional Source Comments The information contained in this document represents components of the legal health record. It is not the complete legal health record.[facility]
--- OUTSIDE RECORDS SUMMARY | 2025-09-20 22:09 | XMS_ITS | Encounter Summary ---
Author Organization [facility] Address [facility] [employer] [facility] [address] [place] [address] Phone Care Team Providers Care Frame And Scrap Crusher Name Role Phone Obed Richardson DO Primary Care Provider [phone] Otilia Story MD Unavailable [phone] Bigda, Obed A DO Unavailable Bigdaniel, Obed A DO Unavailable Dionte Carrillo ANALYTICS LEADER Unavailable Valerie Workman HOURLY ASSOCIATE Unavailable [phone] Bigda, Obed A DO Primary Care Provider [phone] Encounter Details Date Type Department Care Team (Late st Contact Info) Description 03/18/2021 Procedure Pass [facility] Echo Lab [address] [place] [address] Social History Tobacco Use Types Packs/Day Years Used Date Smoking Tobacco: Former Cigarettes Q uit: 11/09/1999 Smokeless Tobacco: Never Alcohol Use Standard Drinks/Week Comments No 0 (1 standard drink = 0.6 oz pur e alcohol) Comments Unknown Sex and Gender Information Value [...] 10/09/2025 1:30 PM EST Office Visit Orthopedics [place] [address] [place] [address] Carlos Marquez MD [address] [place] [address] documented as of this encounter Visit Diagnoses Not on filedocumented in this encounter Additional Health Concerns Infection Onset Date Last Indicated Resolved Time CoV-Risk 09/06/2021 09/06/2021 09/16/2021 1:22 AM EST CoV-Risk Comment:Per note documentation 07/13/2023 07/13/2023 11:03 AM EDT documented as of this encounter Care Teams Frame And Scrap Crusher Relationship Specialty Start Date End Date Obed Richardson DO PCP - General 02/16/15 12/19/24 Obed Richardson DO [address] [place] [address] PCP - General Internal Medicine 12/20/24 Otilia Story MD [address] [place] [address] [email or web address] Historical LMR Provider 02/23/15 Obed Richardson DO Referring Physician Internal Medicine 01/08/16 Obed Richardson DO [address] [place] [address] Historical LMR Provider 07/27/17 10/19/21 Dionte Carrillo CNP [address] [place] [address] [email or web address] Nurse Practitioner Oncology 05/30/19 Valerie Workman NP [address] [place] [address] [email or web address] Registered Nurse Family Medicine 06/04/20 documented as of this encounter Additional Source Comments The information contained in this document represents components of the legal health record. It is not the complete legal health record.[facility]
--- OUTSIDE RECORDS SUMMARY | 2025-09-20 22:09 | XMS_ITS | Encounter Summary ---
Author Organization [facility] Address [facility] [place] [facility] [facility] [address] [place] [address] Phone Care Team Providers Care Crushing Mill Operator Name Role Phone Obed Richardson DO Primary Care Provider [phone] Otilia Story MD Unavailable [phone] Obed Richardson DO Unavailable Dionte Carrillo BOAT BUILDER Unavailable Valerie Workman NURSERYPERSON Unavailable Obed Richardson DO Primary Care Provider [phone] Encounter Details Date Type Department Care Team (Late st Contact Info) Description 10/21/2023 Transcribe Orders [facility] Lab Main [address] [place], [place] [id number] Carlos Marquez MD [address] [place] [address] [email or web address] Social History Tobacco Use Types Packs/Day Years [...] as food, clothing, or medical care? No 07/13/2023 In the past 12 months have y ou been in a relationship with a person who hurts, threatens, or tries to control you? No 07/13/2023 Are you denied basic needs s uch as food, clothing, or medical care? No 07/13/2023 In the past 12 months have y ou been in a relationship with a person who hurts, threatens, or tries to control you? No 07/13/2023 Comments No Sex and Gender Information Value Date Recorded Sex Assigned at Female 07/13/2023 10:37 AM EDT Legal Sex Female 7:04 PM EST Gender Identity Female 07/13/2023 10:37 AM EDT Sexual Orientation Straight 07/13/2023 10 :37 AM EDT documented as of this encounter Plan of Treatment Upcoming Encounters Date Type Department Care Team ([facility] st Contact Info) Description 10/09/2025 1:30 PM EST Office Visit Orthopedics [address] [address] Carlos Marquez MD [address] [place] [address] documented as of this encounter Visit Diagnoses Not on filedocumented in this encounter Care Teams Crushing Mill Operator Relationship Specialty Start Date End Date Obed Richardson DO PCP - General 02/16/15 12/19/24 Obed Richardson DO [address] [place] [address] [email or web address] PCP - General Internal Medicine 12/20/24 Otilia Story MD [address] [place] [address] [email or web address] Historical LMR Provider 02/23/15 Obed iRchardson DO [email or web address] Referring Physician Internal Medicine 01/08/16 Dionte Carrillo, ZACKARY [address] [place] [phone] [email or web address] Nurse Practitioner Oncology 05/30/19 Valerie Workman, FRANTZ [address] [place] [address] [email or web address] Registered Nurse Family Medicine 06/04/20 documented as of this encounter Additional Source Comments The information contained in this document represents components of the legal health record. It is not the complete legal health record.[facility]
--- OUTSIDE RECORDS SUMMARY | 2025-09-20 22:09 | XMS_ITS | Encounter Summary ---
Author Organization [facility] Address [facility] [employer] [facility] [address] [place] [address] Phone Care Team Providers Care Emergency Medical Tech Name Role Phone Obed Richardson DO Primary Care Provider [phone] Otilia Story MD Unavailable [phone] Obed Richardson DO Unavailable Dionte Carrillo COUNTER ATTENDANT Unavailable [phone] Valerie Workman PRODUCE SPECIALIST Unavailable Obed Richardson DO Primary Care Provider [phone] Encounter Details Date Type Department Care Team (Late st Contact Info) Description 07/17/2023 Procedure Pass [place] Admitting Dept - Virtual Department [address] [place] [address] Social History Tobacco Use Types Packs/Day Years Used Date Smoking Tobacco: Former Cigarettes Q uit: 11/09/1999 Smokeless Tobacco: Never Alcohol Use Standard Drinks/Week Comments No 0 (1 standard drink = 0.6 oz pur e alcohol) Education Answer Date Recorded Are you interested [...] 10/09/2025 1:30 PM EST Office Visit Orthopedics [place] [address] [place] [address] Carlos Marquez MD [address] [place] [address] [email or web address] documented as of this encounter Visit Diagnoses Not on filedocumented in this encounter Care Teams Emergency Medical Tech Relationship Specialty Start Date End Date Obed Richardson DO PCP - General 02/16/15 12/19/24 Obed Richardson DO [address] [place] [address] PCP - General Internal Medicine 12/20/24 Otilia Story MD [address] [place] [address] [email or web address] Historical LMR Provider 02/23/15 Obed Richardson DO Referring Physician Internal Medicine 01/08/16 Dionte Carrillo CNP [address] [place] [address] [email or web address] Nurse Practitioner Oncology 05/30/19 Valerie Workman NP [address] [place] [address] [email or web address] Registered Nurse Family Medicine 06/04/20 documented as of this encounter Additional Source Comments The information contained in this document represents components of the legal health record. It is not the complete legal health record.[facility]
--- OUTSIDE RECORDS SUMMARY | 2025-09-20 22:09 | XMS_ITS | Encounter Summary ---
Author Organization [facility] Address [facility] [employer] [facility] [address] [place] [address] Phone Care Team Providers Care Meat Slicer Name Role Phone Debra, Obed Sheehan DO Primary Care Provider [phone] Otilia Story MD Unavailable Bigdaniel, Obed Sheehan DO Unavailable Bigdaniel, Obed A DO Unavailable Debbi Crump DNP Unavailable [phone] Dionte Carrillo SLITTER CUT OFF OPERATOR Unavailable Valerie Workman DEBURRING TECHNICIAN Unavailable Bigda, Obed A DO Primary Care Provider [phone] Encounter Details Date Type Department Care Team (Latest Contact Info) Description 04/27/2019 Ancillary Orders Virtual Department [address] [place] [address] Yajaira Narayanan, JANESSA [address]. [address] [place], [place] [phone] [email or web address] Screening for osteoporosis Social History Tobacco Use Types Packs/Day Years [...] 10/09/2025 1:30 PM EST Office Visit [facility]opedics [place] [address] [place] [address] Carlos Marquez MD [address] [place] [address] [email or web address] documented as of this encounter Results * BD DXA AXIAL (SPINE) WITH HIP [...] BD BONE DENSITY DEXA Fin al Result documented in this encounter Visit Diagnoses Diagnosis Screening for osteoporosis Special screening for osteoporosis Screening for osteoporosis Special screening for osteoporosis documented in this encounter Additional Health Concerns Infection Onset Date Last Indicated Resolved Time CoV-Risk 09/06/2021 09/06/2021 09/16/2021 1:22 AM EST CoV-Risk Comment:Per note documentation 07/13/2023 07/13/2023 11:03 AM EDT documented as of this encounter Care Teams Meat Slicer Relationship Specialty Start Date End Date Obed Richardson DO [email or web address] PCP - General 02/16/15 12/19/24 Obed Richardson DO [address] [place] [address] [email or web address] PCP - General Internal Medicine 12/20/24 Otilia Story MD [address] [place] [address] [email or web address] Historical LMR Provider 02/23/15 Obed Richardson DO [email or web address] Referring Physician Internal Medicine 01/08/16 Obed Richardson DO [address] [place] [address] [email or web address] Historical LMR Provider 07/27/17 10/19/21 Debbi Crump DNP [address] [place] [address] [email or web address] Oncology 05/24/18 05/29/19 Dionte Carrillo, ZACKARY [address] [place] [address] [email or web address] Nurse Practitioner Oncology 05/30/19 Valerie Workman, DEBURRING TECHNICIAN [address] [place] [address] [email or web address] Registered Nurse Family Medicine 06/04/20 documented as of this encounter Additional Source Comments The information contained in this document represents components of the legal health record. It is not the complete legal health record.[facility]
--- OUTSIDE RECORDS SUMMARY | 2025-09-20 22:09 | XMS_ITS | Encounter Summary ---
Author Organization [facility] Address [facility] [employer] [facility] [address] [place] [address] Phone Care Team Providers Care Food Quality Technician Name Role Phone Obed Richardson DO Primary Care Provider [phone] Otilia Story MD Unavailable [phone] Obed Richardson DO Unavailable Dionte Carrillo CORE MAN Unavailable Valerie Workman HISTOPATHOLOGY TECHNICIAN Unavailable Obed Richardson DO Primary Care Provider [phone] Encounter Details Date Type Department Care Team (Late st Contact Info) Description 07/20/2023 Procedure Pass [facility]iology [address] [place] [address] Social History Tobacco Use Types Packs/Day Years Used Date Smoking Tobacco: Former Cigarettes Q uit: 11/09/1999 Smokeless Tobacco: Never Alcohol Use Standard Drinks/Week Comments No 0 (1 standard drink = 0.6 oz pur e alcohol) Home Health Assessment: Transportation Answer Date Recorded Lack of Transportation (Medical) No 07/23/2023 Lack of Transportation (Non-Medical) No 07/23/2023 Patient Unable or Declines to Respond No 07/23/2023 Education Answer Date Recorded Are you interested [...] 10/09/2025 1:30 PM EST Office Visit Orthopedics [address] [address] Carlos Marquez MD [address] [place] [address] documented as of this encounter Visit Diagnoses Not on filedocumented in this encounter Care Teams Food Quality Technician Relationship Specialty Start Date End Date Obed Richardson DO [email or web address] PCP - General 02/16/15 12/19/24 Obed Richardson DO [address] [facility] [place] [address] [email or web address] PCP - General Internal Medicine 12/20/24 Otilia Story MD [address] [place] [address] [email or web address] Historical LMR Provider 02/23/15 Obed Richardson DO [email or web address] Referring Physician Internal Medicine 01/08/16 Dionte Carrillo, ZACKARY [address] [place] [address] [email or web address] Nurse Practitioner Oncology 05/30/19 Valerie Workman, FRANTZ [address] [place] [address] [email or web address] Registered Nurse Family Medicine 06/04/20 documented as of this encounter Additional Source Comments The information contained in this document represents components of the legal health record. It is not the complete legal health record.[facility]
--- OUTSIDE RECORDS SUMMARY | 2025-09-20 22:09 | XMS_ITS | Encounter Summary ---
Author Organization [facility] Address [facility] [employer] [facility] [address] [place] [address] Phone Care Team Providers Care Extrusion Bender Name Role Phone Obed Richardson DO Primary Care Provider [phone] Otilia Story MD Unavailable [phone] Obed Richardson DO Unavailable Dionte Carrillo SWING DRIVER Unavailable Valerie Workman MOTORCYLES FINAL INSPECTOR Unavailable Obed Richardson DO Primary Care Provider [phone] Encounter Details Date Type Department Care Team (Latest Contact Info) Description 05/01/2022 Ancillary Orders [facility] Orthopedics & Sports Medicine [address] [place] [address] Josiah Carlson MD [address] [place] [address] [email or web address] Post-traumatic osteoarthritis of right knee Social History Tobacco Use Types Packs/Day Years [...] 10/09/2025 1:30 PM EST Office Visit Orthopedics [place] [address] [place] [address] Carlos Marquez MD [address] [place] [address] [email or web address] documented as of this encounter Results * XR KNEE 1-2 VIEWS (LEFT) (05/01/2022 2:46 PM EDT) Narrative SYSTEMGENERATED, DOCUMENTATION - 05/01/2022 2:46 PM EDT This image report has been auto-finalized and has not been read by a Radiologist. Interpretation has been included in the provider encounter note for this date of service. us Josiah Carlson MD IMG XR LOWER EXTREMIT Y Final Result documented in this encounter Visit Diagnoses Diagnosis Post-traumatic osteoarthritis of right knee Post-traumatic osteoarthritis of right knee documented in this encounter Additional Health Concerns Infection Onset Date Last Indicated Resolved Time CoV-Risk Comment:Per note documentation 07/13/2023 07/13/2023 11:03 AM EDT documented as of this encounter Care Teams Extrusion Bender Relationship Specialty Start Date End Date Obed Richardson DO PCP - General 02/16/15 12/19/24 Obed Richardson DO [address] [place] [address] PCP - General Internal Medicine 12/20/24 Otilia Story MD [address] [place] [address] [email or web address] Historical LMR Provider 02/23/15 Obed Richardson DO Referring Physician Internal Medicine 01/08/16 Dionet Carrillo CNP [address] [place] [address] [email or web address] Nurse Practitioner Oncology 05/30/19 Valerie Workman, FRANTZ [address] [place] [address] [email or web address] Registered Nurse Family Medicine 06/04/20 documented as of this encounter Additional Source Comments The information contained in this document represents components of the legal health record. It is not the complete legal health record.[facility]
--- OUTSIDE RECORDS SUMMARY | 2025-09-20 22:09 | XMS_ITS | Encounter Summary ---
Author Organization [facility] Address [address] [place] [address] [place] [address] Phone Care Team Providers Care Test Cell Technician Name Role Phone Obed Richardson DO Primary Care Provider [phone] Otilia Story MD Unavailable [phone] Bigda, Obed Sheehan DO Unavailable Bigda, Obed A DO Unavailable Dionte Carrillo MEAT CARVER Unavailable Valerie Workman MOBILE WEB APPLICATION DEVELOPER Unavailable Bigda, Obed A DO Primary Care Provider [phone] Reason for Referral * Outpatient Procedure - Closed Specialty Diagnoses / Procedures Referred By Contlondon t Referred To Contact Diagnoses Cardiac murmur, unspecified Procedures Adult Echo TTE Asha Arguelles PA Phone: tel: fax: Referral ID Status Reason Start Date Expiration Date Visits Re quested Visits Authorized [id number] Closed 03/18/2021 03/18/2022 1 1 Encounter Details Date Type Department Care Team (Latest Contact Info) Description 03/18/2021 Transcribe Orders [facility] Department [address] [place] [address] [phone] Asha Arguelles PA [address] [place] [address] [place] [address] Cardiac murmur, unspecified (Primary Dx) Social History Tobacco Use Types Packs/Day Years [...] 10/09/2025 1:30 PM EST Office Visit [facility] [place] [address] [place] [address] Carlos Marquez MD [address] [place] [address] documented as of this encounter Results * TTE COMPREHENSIVE W/ LVO CONTRAST (04/10/2021 12:25 PM EDT) Body Surface Area 1.8 m2 Height 165 cm Weight 73 kg Systolic BP 150 mmHg Diastolic BP 67 mmHg Interventricular Septum Thickness 7 mm Left Ventricle Internal Diameter End Diastole 49 37 - 52 mm Left Ventricle Internal Diameter End Systole 32 22 - 35 mm Left Ventricular Outflow Tract Diameter 20.0 mm LVOT VTI REST 199 mm Left Ventricular Outflow Tract Velocity 0.9 m/s Left Ventricular Outflow Tract Gradient at Rest 4 mmHg Left Ventricular Posterior Wall Thickness 8 mm Ejection Fraction 55 50 - 75 Percent Left Atrium Dimension Anterior-Posterior 34 15 - 40 mm Aortic Valve Mean Gradient 3 mmHg Aortic Valve Time Velocity Integral 246 mm Aortic Valve Peak Velocity 124.0 cm/s Aortic Valve Peak Gradient 6 mmHg Aortic Sinus Diameter 29 mm Ascending Aorta Diameter 27 mm Inferior Vena Cava Diameter 14 0.0 - 21 mm Mitral Valve Deceleration Time 313 ms Mitral Valve A Wave Speed 118.0 cm/s Mitral Valve E Wave Speed 127.0 cm/s Right Ventricle Basal Diameter 30.8 25 - 41 mm Tricuspid Valve Peak Velocity 2.8 m/s Raw LV EF% 57 % Left Atrial Volume 64 mL Left Atrial Volume Index 35.56 mL/m2 Right Ventricle Peak Systolic Pressure 34 mmHg Right Ventricle TAPSE 17 mm Right Atrium Pressure Estimated 3 mmHg Right Ventricle to Right Atrium Pressure Gradient 31 mmHg Right Ventricle Pulse Doppler S Wave 10.7 cm/s Right Ventricle Linear Dimension 31 mm Aortic Valve Sinus Index 1 16 19 - 27 mm Ascending Aorta Diameter 15 mm Aortic Sinus Index 16 mm Ascending Aorta Index 15 mm Anatomical Region Laterality Modality Heart Ultrasound Narrative 04/11/2021 8:29 AM EDT This patient was imaged during normal sinus rhythm. The estimated ejection fraction is 55 to 60% with no regional wall motion abnormalities. There was definite evidence of grade 2 diastolic impairment. There was calcified aortic valve leaflets but no significant aortic stenosis. There is mild aortic regurgitation there is mild thickening of both leaflets of the mitral apparatus without significant mitral regurgitation. The PA pressure is mildly elevated at 35 mmHg and there was no prior echo available for comparison. Left Ventricle The left ventricular cavity size and wall thickness are normal. Left ventricular systolic function is normal. There are no segmental left ventricular wall motion abnormalities noted. There is no evidence of diffuse left ventricular hypokinesis. The estimated ejection fraction is 55% (Normal 50-75%). The left ventricular ejection fraction was measured by the single plane method of discs. Left ventricular diastolic function appears abnormal. Grade II diastolic dysfunction with elevated left atrial pressure. There is no evidence of left ventricular thrombus. Right Ventricle The right ventricular size is normal. The right ventricle measures 31 mm at the base (normal 25-41 mm). The right ventricular systolic function is normal. Left Atrium The left atrium is normal in size. The left atrial anterior-posterior dimension measures 34 mm (normal 15-40 mm). The LA volume is 64 mL. The LA volume index is 35.56 mL/m2 (normal indexed value is 16-34 mL/m2). No evidence suggestive of pulmonary vein stenosis. Right Atrium The right atrium is normal in size. The IVC is normal in size (2.1cm or less). The IVC measures 14 mm (normal <=21 mm). The IVC demonstrates normal collapse with inspiration which is consistent with normal RA pressure. The hepatic veins appear normal in size. Mitral Valve The mitral valve appears normal. The E/A ratio is 1.1. The medial E' is 5.11 cm/s. The medial E/E' is 24.9. There is no evidence of mitral stenosis. There is posterior mitral annular calcification. There is mild focal thickening of the posterior mitral valve leaflet at the base of the mitral valve. There is no evidence of mitral valve prolapse. There is no evidence of mitral annular dilation. Tricuspid Valve The tricuspid valve appears normal. There is no evidence of tricuspid stenosis. There is evidence of mild tricuspid regurgitation by color and spectral Doppler. The systolic pulmonary artery pressure is within normal limits. The RV systolic pressure was estimated from the peak TV regurgitant velocity. The estimated RV systolic pressure is 34 mmHg assuming a right atrial pressure of 3 mmHg. The calculated peak RV-RA pressure gradient is 31 mmHg. Aortic Valve The aortic valve is tricuspid. There is mild thickening of the non-coronary aortic leaflet. There is no evidence of valvular aortic stenosis. The peak aortic valve gradient is 6 mmHg. The mean aortic gradient is 3 mmHg. There is evidence of mild aortic regurgitation by color and spectral Doppler. The visualized portions of the thoracic aorta appear normal. Pulmonic Valve The pulmonary valve appears normal. There is no evidence of pulmonic stenosis. There is no evidence of pulmonary regurgitation by color and spectral Doppler. The pulmonary artery appears normal. Pericardium There is no evidence of pericardial effusion. Interatrial Septum The interatrial septum appears normal. General Findings The study was technically difficult (4). History of mastectomy with reconstructive surgery. Technique(s) used in the evaluation: Color flow Doppler and Spectral Doppler. An echo contrast agent was administered IV, per ASE guidelines.The predominant rhythm during the study was sinus. Patient tolerated the procedure well. Comparison Findings No prior studies for comparison. us Asha CHILEL CV ECHO ORDERABLES Final Re sult documented in this encounter Visit Diagnoses Diagnosis Cardiac murmur, unspecified- Primary Cardiac murmur, unspecified documented in this encounter Additional Health Concerns Infection Onset Date Last Indicated Resolved Time CoV-Risk 09/06/2021 09/06/2021 09/16/2021 1:22 AM EST CoV-Risk Comment:Per note documentation 07/13/2023 07/13/2023 10/03/202 3 11:03 AM EDT documented as of this encounter Care Teams Test Cell Technician Relationship Specialty Start Date End Date Obed Richardson DO [email or web address] PCP - General 02/16/15 12/19/24 Obed Richardson DO [address] [place] [address] [email or web address] PCP - General Internal Medicine 12/20/24 Otilia Story MD [address] [place] [address] [email or web address] Historical LMR Provider 02/23/15 Obed Richardson DO [email or web address] Referring Physician Internal Medicine 01/08/16 Obed Richardson DO [address] [place] [address] [email or web address] Historical LMR Provider 07/27/17 10/19/21 Dionte Carrillo, ZACKARY [address] [place] [address] [email or web address] Nurse Practitioner Oncology 05/30/19 Valerie Workman NP [address] [place] [address] [email or web address] Registered Nurse Family Medicine 06/04/20 documented as of this encounter Additional Source Comments The information contained in this document represents components of the legal health record. It is not the complete legal health record.[facility]
--- OUTSIDE RECORDS SUMMARY | 2025-09-20 22:09 | XMS_ITS | Encounter Summary ---
Author Organization [facility] Address [facility] [address] [place] [address] Phone Care Team Providers Care Inspecting Machine Adjuster Name Role Phone Obed Richardson DO Primary Care Provider [phone] Otilia Story MD Unavailable [phone] Obed Richardson DO Unavailable Dionte Carrillo COMMERCIAL RELIEF DRIVER Unavailable Valerie Workman CEMETERY KEEPER Unavailable [phone] Obed Richardson DO Primary Care Provider [phone] Encounter Details Date Type Department Care Team (Late st Contact Info) Description 07/14/2023 Procedure Pass [facility] [address] [place] [address] Social History Tobacco Use Types Packs/Day Years [...] 10/09/2025 1:30 PM EST Office Visit [facility] [place] [address] [place] [address] Carlos Marquez MD [address] [place] [address] [email or web address] documented as of this encounter Visit Diagnoses Not on filedocumented in this encounter Additional Health Concerns Infection Onset Date Last Indicated Resolved Time CoV-Risk Comment:Per note documentation 07/13/2023 07/13/2023 11:03 AM EDT documented as of this encounter Care Teams Inspecting Machine Adjuster Relationship Specialty Start Date End Date Obed Richardson DO [email or web address] PCP - General 02/16/15 12/19/24 Obed Richardson DO [address] [place] [address] [email or web address] PCP - General Internal Medicine 12/20/24 Otilia Story MD [address] [place] [address] [email or web address] Historical LMR Provider 02/23/15 Obed Richardson DO [email or web address] Referring Physician Internal Medicine 01/08/16 Dionte Carrillo, ZACKARY [address] [place] [address] [email or web address] Nurse Practitioner Oncology 05/30/19 Valerie Workman, FRANTZ [address] [place] [address] [email or web address] Registered Nurse Family Medicine 06/04/20 documented as of this encounter Additional Source Comments The information contained in this document represents components of the legal health record. It is not the complete legal health record.[facility]
--- OUTSIDE RECORDS SUMMARY | 2025-09-20 22:09 | XMS_ITS | Encounter Summary ---
Author Organization [facility] Address [facility] [employer] [facility] [address] [place] [address] Phone Care Team Providers Care Multiple Drum Sander Helper Name Role Phone Obed Richardson DO Primary Care Provider [phone] Otilia Story MD Unavailable [phone] Obed Richardson DO Unavailable Dionte Carrillo MEDICAL LABORATORY TECHNICIANS Unavailable Valerie Workman HYDROLOGIC MODELER Unavailable Obed Richardson DO Primary Care Provider [phone] Encounter Details Date Type Department Care Team (Late st Contact Info) Description 05/13/2022 Procedure Pass OR Admitting Dept - Virtual Department [address] [place] [address] Social History Tobacco Use Types Packs/Day Years Used Date Smoking Tobacco: Former Cigarettes Q uit: 11/09/1999 Smokeless Tobacco: Never Alcohol Use Standard Drinks/Week Comments No 0 (1 standard drink = 0.6 oz pur e alcohol) Comments No Sex and Gender Information Value [...] 10/09/2025 1:30 PM EST Office Visit [facility] [place] [address] [place] [address] Carlos Marquez MD [address] [place] [address] [email or web address] documented as of this encounter Visit Diagnoses Not on filedocumented in this encounter Additional Health Concerns Infection Onset Date Last Indicated Resolved Time CoV-Risk Comment:Per note documentation 07/13/2023 07/13/2023 11:03 AM EDT documented as of this encounter Care Teams Multiple Drum Sander Helper Relationship Specialty Start Date End Date Obed Richardson DO [email or web address] PCP - General 02/16/15 12/19/24 Obed Richardson DO [address] [place] [address] [email or web address] PCP - General Internal Medicine 12/20/24 Otilia Story MD [address] [place] [address] [email or web address] Historical LMR Provider 02/23/15 Obed Richardson DO [email or web address] Referring Physician Internal Medicine 01/08/16 Dionte Carrillo, ZACKARY [address] [place] [address] [email or web address] Nurse Practitioner Oncology 05/30/19 Valerie Workman NP [address] [place] [address] [email or web address] Registered Nurse Family Medicine 06/04/20 documented as of this encounter Additional Source Comments The information contained in this document represents components of the legal health record. It is not the complete legal health record.[facility]
--- OUTSIDE RECORDS SUMMARY | 2025-09-20 22:09 | XMS_ITS | Encounter Summary ---
Author Organization [facility] Address [facility] [employer] [facility] [address] [place] [address] Phone Care Team Providers Care Pigeon Fancier Name Role Phone Obed Richardson DO Primary Care Provider [phone] Otilia Story MD Unavailable [phone] Obed Richardson DO Unavailable Dionte Carrillo PORT DRIER Unavailable Valerie Workman EMERGENCY CARE ATTENDANT Unavailable Obed Richardson DO Primary Care Provider [phone] Encounter Details Date Type Department Care Team (Late st Contact Info) Description 07/15/2023 Procedure Pass OR Admitting Dept - Virtual Department [address] [place] [address] Social History Tobacco Use Types Packs/Day Years [...] 10/09/2025 1:30 PM EST Office Visit [facility] [place] [address] [place] [address] Carlos Marquez MD [address] [place] [address] [email or web address] documented as of this encounter Visit Diagnoses Not on filedocumented in this encounter Care Teams Pigeon Fancier Relationship Specialty Start Date End Date Obed Richardson DO PCP - General 02/16/15 12/19/24 Obed Richardson DO [address] [place] [address] PCP - General Internal Medicine 12/20/24 Otilia Story MD [address] [place] [address] [email or web address] Historical LMR Provider 02/23/15 Obed Richardson DO Referring Physician Internal Medicine 01/08/16 Dionte Carrillo CNP [address] [place] [address] [email or web address] Nurse Practitioner Oncology 05/30/19 Valerie Workamn NP [address] [place] [address] [email or web address] Registered Nurse Family Medicine 06/04/20 documented as of this encounter Additional Source Comments The information contained in this document represents components of the legal health record. It is not the complete legal health record.[facility]
--- OUTSIDE RECORDS SUMMARY | 2025-09-20 22:09 | XMS_ITS | Continuity of Care Document ---
Author Organization [facility], [facility] Address [address] [facility] [place] [address] [place] [address] Assessment No assessment recorded. Plan of Treatment Reminders Order Date Submit Date Provider Last Modified By Organization Details Last Modified Time Details Appointments ANNUAL EXAM 2025 01:30P RANJANA TYLER Not available Not available Not available Lab hemoglobi n A1c, QN, blood 2024 025 [facility], [address] [place] [address], [id number], 09/19/2025 12:40:32 CMP, serum or plasma 2024 025 [facility], [address] [place] [address], [id number], 09/19/2025 12:40:31 CBC w/ auto diff 2024 025 [facility], [address] [place] [address], [id number], 09/19/2025 12:40:32 TSH + free T4, serum 2024 025 [facility], [address] [place] [address], [id number], 09/19/2025 12:40:32 iron + TIBC + ferritin, serum 2024 025 [facility], [address] [place] [address], [id number], 09/19/2025 12:40:32 vitamin B12 + folate, serum or blood 2024 025 [facility], [address] [place] [address], [place], [id number], 09/19/2025 12:40:32 Referral None recorded. Procedures None recorded. Surgeries None recorded. Imaging None recorded. Medication Orders FeroSul 325 mg (65 mg iron) tablet 2024 025 [id number], [address], [place], [phone], 09/19/2025 12:40:53 Patient TargetsNo targets recorded. Patient InstructionsNo instructions recorded. Reason for Referral None Reported. Results Created Date Observation Date Name Description Value Unit Range Abnormal Flag Note LastModifiedBy Organization Detail LastModifiedTime 09/20/2009/20/2025 imagi reyna/john whitlock tic resul t No observ ation record ed. [facility] [address] [facility] [address], [place], [address], 09/20/2025 18:13:25 Result Notes None recorded. Problems Name Problem SNOMED Code Status Onset Date Resolution Date Notes Provider Name and Address Organization Details Recorded Time Essential hypertens ion 50274423 Active 2017 Not Available [facility] 4 21:02:59 Obstructi ve sleep apnea syndrome 57694838 Active 2017 Not Available [facility] 4 21:02:59 Metabolic syndrome X 581181960 Active 2017 Not Available [facility] 4 21:02:59 Impaired fasting glycemia 634586931 Active 2017 Not Available [facility] 4 21:02:59 BRCA2 gene mutation detected 431104246 Active 2017 Not Available [facility] 4 21:02:59 Anxiety 53851379 Active 2017 Not Available [facility] 4 21:02:59 Glaucoma 93996545 Active 2017 Not Available [facility] 4 21:02:59 Hypothyro idism 57032199 Active 2020 Not Available [facility] 4 21:02:59 Hyperlipi demia 91584314 Active 2020 Not Available [facility] 4 21:02:59 Pain of left knee region 566682220787 109 Active 2021 Not Available [facility] 4 21:02:59 Osteoarth ritis of left knee joint 006564766888 109 Active 2021 Not Available [facility] 4 21:02:59 Pain of left knee joint 111249809095 107 Active 2022 Not Available [facility] 4 21:02:59 Fever with chills 511468720 Active 2022 Not Available [facility] 4 21:02:59 Generaliz ed rash 877712673 Active 2022 Not Available [facility] 4 21:02:59 Sepsis 02585546 Active 2022 Not Available [facility] 4 21:02:59 Insomnia 953724044 Active 2022 Not Available [facility] 4 21:02:59 Gout 15460965 Active 2023 RANJANA SANCHEZ [address] [place], [address], [facility] 4 15:55:01 Prostheti c joint infection 785677607 Active 2023 RANJANA SANCHEZ [address] [place], [address], [facility] 4 16:01:18 Pain of right wrist 871404281678 100 Active 2023 RANJANA SANCHEZ [address] [place], [address], [facility] 4 10:32:19 Iron deficienc y anemia 23941254 Active 2024 RANJANA SANCHEZ [address] [place], [address], [facility] 5 15:41:33 Problem Notes None recorded. Procedures Surgical History Date Name Laterality Status Provider Name and Address Organization Details Recorded Time 8 Colonoscopy completed Anna Diallo [facility] 08/18/2018 11:29:44 Imaging Results None recorded. Procedure Notes None recorded. Medical Equipment None Reported. Allergies Allergen ID Allergen Name Allergen Category Reaction Reaction Severity Criticality Documentation Date Start Date Code Code System Note Provider Name and Address Organization Details Recorded Time 86327 Cephalosp lopez (substanc e) medicatio n angioedem a dyspnea itching swelling Not available Not available Not available Not available high 09/19/20252011 03190 7003 SNOMED Not Available jose - External Data Service - prod 5 03:10:58 1665 diclofena c Not available anaphylax is Not available Not available 04/02/2018 3355 RxNorm Anna Boyercalista jimenez [facility] 8 10:30:22 7714 nickel environme nt Not available Not available Not available 10/30/2023 69212 29 RxNorm Estela Marshall [facility] 4 15:38:38 Medications Name Sig Start Date Stop Date Status Note LastModified by Organization Details LastModified Time compound drug 12/27 completed Not Available Not Available Not Available metformin [...] completed Not Available Not Available Not Available clindamycin HCl 150 mg capsule TAKE 4 CAPSULES (600MG) BY MOUTH 3 TIMES A DAY FOR 7 DAYS 04/24 completed Not Available Not Available Not Available penicillin V potassium 500 mg tablet 10/13 completed Not Available Not Available Not Available amlodipine 5 mg tablet TAKE 1 TABLET DAILY active Not Available Not Available No t Available sulfamethox azole 800 mg-trimetho prim 160 mg [...] Not Available Not Available No t Available amoxicillin 500 mg tablet TAKE FOUR TABLETS BY MOUTH 1 HOUR PRIOR TO PROCEDURE active Not Available Not Available No t Available meloxicam 7.5 mg tablet TAKE 1 TABLET BY MOUTH EVERY DAY 09/19 completed Not Available Not Available Not Available ofloxacin 0.3 % ear drops INSTILL 10 DROPS TO LEFT EAR DAILY FOR 7 DAYS 10/30 completed Not Available Not Available Not Available famotidine 20 mg tablet 05/15 completed Not Available Not Available Not Available pantoprazol e 40 mg tablet,mike yed release TAKE 1 TABLET BY MOUTH EVERY DAY 09/19 completed Not Available Not Available Not Available docusate sodium 100 mg capsule TAKE 1 CAPSULE BY MOUTH TWICE DAILY 09/19 completed Not Available Not Available Not Available omeprazole 20 mg capsule,del ayed release 10/21 completed Not Available Not Available Not Available aspirin 81 mg chewable tablet CHEW 1 TABLET BY MOUTH TWICE A DAY active Not Available Not Available No t Available capsaicin 0.025 % topical cream APPLY TO THE AFFECTED AREA(S) BY TOPICAL ROUTE 3 TIMES PER DAY 05/19 completed Not Available Not Available Not Available zolpidem 5 mg tablet TAKE 1 TABLET BY MOUTH EVERY DAY 03/22 completed Not Available Not Available Not Available Synthroid 112 mcg tablet TAKE 1 TABLET DAILY active Not [...] 40 mg tablet TAKE 1 TABLET DAILY 03/22 completed Not Available Not Available Not Available ondansetron 4 mg disintegrat ing tablet 05/15 completed Not Available Not Available Not Available doxycycline hyclate 100 mg tablet TAKE 1 TABLET BY MOUTH TWICE DAILY FOR 5 DAYS 08/11 completed Not Available Not Available Not Available naproxen 500 mg tablet 10/21 completed Not Available Not Available Not Available amoxicillin 875 mg-potleslieiu m clavulanate 125 mg tablet 03/23 completed Not Available Not Available Not Available oxycodone 5 mg tablet PLEASE SEE ATTACHED FOR DETAILED DIRECTION S 09/19 completed Not Available Not Available Not Available enoxaparin 40 mg/0.4 mL subcutaneou s syringe 10/30 completed Not Available Not Available Not Available Laxative (bisacodyl) 5 mg tablet TAKE 4 TABLETS BY MOUTH DIRECTED FOR 1 DAY 04/24 completed Not Available Not Available Not Available [...] Not Available Vitamin D3 1000 units qd 09/19 completed Not Available Not Available Not Available Calcium 600 with Vitamin D3 qd active Not Available Not Available N ot Available FeroSul 325 mg (65 mg iron) tablet TAKE 1 TABLET BY MOUTH EVERY DAY 2024 active Not Available Not Available Not Avai lable GaviLyte-G 236 gram-22.74 gram-6.74 gram-5.86 gram oral solution TAKE BY MOUTH DIRECTED PER INSTRUCTI ONS GIVEN FOR 1 DAY 04/24 completed Not Available Not Available Not Available metoprolol succinate ER 50 mg capsule sprinkle, ext. release 24 hr Take 1 capsule every day by oral route. 04/27 completed Not Available Not Available Not Available Fluad Quad 2486-2878(6 5yr up)(PF) 60 mcg (15 mcg x 4)/0.5mL IM syringe ADMINISTE R 0.5ML IN THE MUSCLE DIRECTED 02/20 completed Not Available Not Available Not Available Vitals Date Recorded Body height Body mass index (BMI) Body weight Heart rate Oxygen saturation Systolic And Diastolic Provider Name and Address Organization Details Last Updated DateTime 5 165.1 cm 30 kg/m2 96986.0 6 g 87 /min 98 % 120/68 mm[Hg] [facility] 5 11:52:10 Social History Question Answer Notes LastModified by Organizat ion Details LastModified Time Tobacco Smoking Status Former Smoker Not Available [facility] 08/14/2020 03:36:24 What Was The Date Of Your Most Recent Tobacco Screening? 09/19/2025 [email or web address] Information not available 09/19/2025 How Many Years Have You Smoked Tobacco? 30 [id number] Information not available 08/14/2020 Sex: Female Functional Status Question Answer Note LastModified by Organization D etails LastModified Time Do you or have you ever used any other forms of tobacco or nicotine? No [email or web address] Information not available 10/30/2023 Mental Status None recorded. Family History Nothing Reported. Medical History Condition Response Coronary Artery Disease N Other N Gout N Kidney Stones N Blood Diseases N Blood Transfusion N COPD N Depression N Anxiety Disorder N Muscle, Joint, or Bone Problems N Obesity N Vision or Eye Problems N Arthritis N Infertility N Polyps N Mental Disorder N Cancer N Stroke N Varicosities N Fibromyalgia N Headaches N Kidney Disease N Heart Problems N Hospitalizations N Skin Problems N Eating Disorder N MRSA exposure N Constipation N Tuberculosis N Asthma N Hepatitis N Pulmonary Embolism N Chicken Pox N Autism Spectrum Disorder (ASD) N Breast Cancer N Lung Disease N Defects or Inherited Disease N Endometriosis N Bladder or Kidney Problems N High Cholesterol N Liver Disease N Allergies/Hayfever N Thyroid Problems N GI Problems N Anemia N Mental Illness N Ovarian Cancer N Diabetes N Seizures/Epilepsy N Congestive Heart Failure (CHF) N Eczema N Diverticulitis N Abuse/Domestic Violence N Reflux/GERD N Heart Disease N Hypertension N Osteoporosis N Gynecological HistoryNo gynecological history recorded. Obstetrics History GPAL:G 0 P 0 0 0 0 Immunizations Vaccine Type Date Status Note Provider Nam e and Address Organization Details Recorded Time Influenza, split virus, quadrivalent, preservative 1 completed Not Available [facility] 10/29/2023 21:02:59 Influenza, split virus, quadrivalent, preservative 2 completed Not Available [facility] 10/29/2023 21:02:59 Pneumococcal conjugate PCV 13 8 completed Not Available [facility] 10/29/2023 21:03:00 Influenza, split virus, quadrivalent, preservative 8 completed Not Available [facility] 10/29/2023 21:03:00 Influenza, split virus, quadrivalent, preservative 9 completed Not Available [facility] 10/29/2023 21:02:59 pneumococcal polysaccharide PPV23 9 completed Not Available [facility] 10/29/2023 21:03:00 Influenza, split virus, quadrivalent, preservative 0 completed Not Available [facility] 10/29/2023 21:03:00 Influenza, split virus, quadrivalent, preservative 0 completed Not Available [facility] 10/29/2023 21:03:00 COVID-19, mRNA, LNP-S, PF, 100 mcg/0.5mL dose or 50 mcg/0.25mL dose 1 completed Not Available [facility] 10/29/2023 21:03:00 COVID-19, mRNA, LNP-S, PF, 100 mcg/0.5mL dose or 50 mcg/0.25mL dose 1 completed Not Available [facility] 10/29/2023 21:03:00 Past Encounters Encounter ID Performer Location Encounter Start Date Encounter Closed Date Diagnosis/Indication Diagnosis SNOMED-CT Code Diagnosis ICD10 Code Diagnosis IMO Codes Diagnosis Note [id number] RANJANA SANCHEZ [facility] [address],[place] [address] 09/19/2025 11:31:31 09/19/2025 13:35:15 Depression screening 233136963 Z13.31 0 Essential hypertension 34537158 I10 BP on recheck was 118/70 L arm after sittingwel l controlled at home and in office, has initial elevation due to white coat HTNmedicat ion works well for patient Hypothyroidism 80220811 E03.8 will recheck levels in a few weeks to see if the affected by the infection Impaired f asting glycemia 199367533 R73.01 stable Iron defic iency anemia 92248270 D50.0 will set up with recheck today before she leavesset up for STAT change for her colonoscop y date Health Concerns Section Related Observation LastModified by Organization Detai ls LastModified Time None Recorded Concern Status LastModified by Organization Details LastModified Time None Recorded Payers Encounter Date Sequence Insurance Name Policy Number Policy Samayoa Covered Member ID Samayoa Member ID Guarantor Name 09/19/2025 1 [facility] (MEDICARE REPLACEMENT/A DVANTAGE - PPO) [id number] Dixie Blunt [id number] Dixie Blunt Notes Date Note Type Note Provider Name a nd Address Organization Details Recorded Time 09/19/2025 text/html ROS as noted in the HPI f/u appt. the patient reports that she is overall doing really well the patient reports that she is feeling slightly low energy, hx of the severe iron def anemia due to GI bleedwill recheck levels again and also recheck her thyroid levels as well the patient seeing her knee doctor the patient and I will f/u with lab work results RANJANA SANCHEZ [address] [place] [address], [place], [address], [facility] 09/19/2025 12:41:20 OBGyn Episode No OBEpisode recorded.
--- OUTSIDE RECORDS SUMMARY | 2025-09-20 22:09 | XMS_ITS | Encounter Summary ---
Author Organization [facility] Address [facility] [employer] [facility] [address] [place] [address] Phone Care Team Providers Care Professor Of Anthropology Name Role Phone Otilia Story MD Unavailable Obed Richardson DO Unavailable Dionte Carrillo CATERING TRUCK DRIVER Unavailable Valerie Workman NP Unavailable Obed Richardson DO Primary Care Provider Encounter Details Date Type Department Care Team (Latest Contact Info) Description 01/19/2025 Transcribe Orders [facility] [address] [place] [address] Asha Lau CATERING TRUCK DRIVER [address] [place] [address] [id number] [email or web address] Family history of colon cancer (Primary Dx); Iron deficiency anemia, unspecified iron deficiency anemia type Social History Tobacco Use Types Packs/Day Years [...] as food, clothing, or medical care? No 12/20/2024 In the past 12 months have y ou been in a relationship with a person who hurts, threatens, or tries to control you? No 12/20/2024 Are you denied basic needs s uch as food, clothing, or medical care? No 12/20/2024 In the past 12 months have y ou been in a relationship with a person who hurts, threatens, or tries to control you? No 12/20/2024 Comments No Sex and Gender Information Value [...] 10/09/2025 1:30 PM EST Office Visit [facility] [place] [address] [place] [address] Carlos Marquez MD [address] [place] [address] [email or web address] documented as of this encounter Results * Fecal immunochemical test x1 (FIT) (01/19/2025 10:05 PM EDT) Immuno Fecal Occult Negative Negative [facility] Stool (Stool) 01/19/2025 10: 05 PM EDT 01/20/2025 11:24 AM EDT us Asha Lau [facility] BODY FLUIDS AND STOOL ORDERABLES Final Result Performing Organization Address City/[facility]/ZIP Co de Phone Number [address] [address] * (ABNORMAL) Vitamin B12 (01/19/2025 10:59 AM EDT) VITAMIN B12 >2000(H) 232 - 1245 pg/mL [facility] Blood 01/19/2025 10:5 9 AM EDT 01/19/2025 11:01 AM EDT us Asha Lau [facility] BLOOD BKR ORDERABLES F inal Result Performing Organization Address [facility] Co de Phone Number [address] [address] * Ferritin (01/19/2025 10:59 AM EDT) FERRITIN 44 13 - 150 ug/L [facility] Blood 01/19/2025 10:5 9 AM EDT 01/19/2025 11:01 AM EDT us Asha Lau [facility] BLOOD BKR ORDERABLES F inal Result Performing Organization Address [facility]/ZIP Co de Phone Number [address] [address] * Folate (01/19/2025 10:59 AM EDT) FOLIC ACID 15.5 4.2 - 19.9 ng/mL [facility] Blood 01/19/2025 10:5 9 AM EDT 01/19/2025 11:01 AM EDT us Asha Lau [facility] BLOOD BKR ORDERABLES F inal Result Performing Organization Address City/[facility]/ZIP Co de Phone Number [address] [address] * (ABNORMAL) Iron and iron binding capacity (01/19/2025 10:59 AM EDT) IRON 29(L) 30 - 160 ug/dL [facility] IRON BINDING CAPACITY 384 228 - 428 ug/dL [facility] TRANSFERRIN SATURAT. 8(L) 15 - 50 % [facility] Blood 01/19/2025 10:5 9 AM EDT 01/19/2025 11:01 AM EDT us Asha Lau [facility] BLOOD BKR ORDERABLES F inal Result [facility] [address] [place] [address] * Comprehensive metabolic panel (01/19/2025 10:59 AM EDT) SODIUM 141 133 - 146 mmol/L [facility] POTASSIUM 3.3 3.3 - 5.1 mmol/L [facility] CHLORIDE 102 96 - 108 mmol/L [facility] CO2 28 21 - 35 mmol/L [facility] BUN 6 6 - 19 mg/dL [facility] CREATININE 0.60 0.5 - 1.5 mg/dL [facility] GLUCOSE 81 70 - 99 mg/dL [facility] ALBUMIN 4.1 3.9 - 4.8 g/dL [facility] TOTAL PROTEIN 7.4 6.5 - 8.0 g/dL [facility] CALCIUM 9.6 8.4 - 10.3 mg/dL [facility] ALKALINE PHOSPHATASE 109 39 - 117 U/L [facility] TOTAL BILIRUBIN 0.5 0.0 - 1.2 mg/dL [facility] AST 28 0 - 37 U/L [facility] ALT 11 0 - 40 U/L [facility] GLOBULIN 3.3 1 - 4.8 g/dL [facility] EGFR 94 >59 mL/min/1.7 3m2 [facility] Comment:Estimated glomerular filtration rate calculated using the CKD-EPI refit equation. ANION GAP 14 10 - 20 mmol/L [facility] Blood 01/19/2025 10:5 9 AM EDT 01/19/2025 11:01 AM EDT us Asha Lau [employer] LAB BLOOD BKR ORDERABLES F inal Result [facility] [address] [place] [address] * (ABNORMAL) CBC and differential (01/19/2025 10:59 AM EDT) WBC 9.11 4.00 - 11.00 K/uL [facility] RBC 4.16 4.00 - 5.20 M/uL [facility] HGB 9.4(L) 12.0 - 16.0 g/dL [facility] HCT 33.4(L) 36.0 - 46.0 % [facility] PLT 380 150 - 450 K/uL [facility] MCV 80.3 80.0 - 100.0 fL [facility] MCH 22.6(L) 27.0 - 31.0 pg [facility] MCHC 28.1(L) 32.0 - 36.0 g/dL [facility] RDW Not measured 11.5 - 14.5 % [facility] MPV 10.0 8.4 - 12.0 fL [facility] NRBC 0.00 0.00 /100 WBCs [facility] ABSOLUTE NRBC 0.00 0.00 K/uL [facility] DIFF METHOD Auto [facility] NEUTS 80.6(H) 48.0 - 76.0 % [facility] LYMPHS 10.9(L) 18.0 - 41.0 % [facility] MONOS 6.4 4.0 - 11.0 % [facility] EOS 0.7 0.0 - 5.0 % [facility] BASOS 1.2 0.0 - 1.5 % [facility] Granulocytes, immature (%) 0.2 0.0 - 0.9 % [facility] ABSOLUTE NEUTS 7.35 1.92 - 7.60 K/uL [facility] ABSOLUTE LYMPHS 0.99 0.72 - 4.10 K/uL [facility] ABSOLUTE MONOS 0.58 0.16 - 1.10 K/uL [facility] ABSOLUTE EOS 0.06 0.00 - 0.50 K/uL [facility] ABSOLUTE BASOS 0.11 0.00 - 0.15 K/uL [facility] Granulocytes, immature 0.02 0.00 - 0.09 K/uL [facility] ACANTHOCYTES PRESENT(A) None [facility] ELLIPTOCYTES PRESENT(A) None [facility] Blood 01/19/2025 10:5 9 AM EDT 01/19/2025 11:01 AM EDT Asha Jones Sid [facility] BLOOD BKR ORDERABLES F inal Result Performing Organization Address City/[facility]/ZIP Co de Phone Number [address] [address] * Immunoglobulin A (01/19/2025 10:59 AM EDT) IgA 213 70 - 400 mg/dL [facility] Blood 01/19/2025 10:5 9 AM EDT 01/19/2025 11:01 AM EDT Asha Lau [facility] BLOOD BKR ORDERABLES F inal Result Performing Organization Address [facility] Co de Phone Number [address] [address] * Tissue transglutaminase IgA (01/19/2025 10:59 AM EDT) TTG IGA ANTIBODY <1.2 <4.0 (Negative) U/mL [facility] Blood 01/19/2025 10:5 9 AM EDT 01/19/2025 11:01 AM EDT Asha Karencuca Lau [facility] BLOOD BKR ORDERABLES F inal Result Performing Organization Address City/[facility]/ZIP Co de Phone Number [facility] [address] [place] [address] documented in this encounter Visit Diagnoses Diagnosis Family history of colon cancer- Primary Family history of malignant neoplasm of gastrointestinal tract Iron deficiency anemia, unspecified iron deficiency anemia type documented in this encounter Care Teams Professor Of Anthropology Relationship Specialty Start Date End Date Obed Richardson DO [address] [place] [address] [email or web address] PCP - General Internal Medicine 12/20/24 Otilia Story MD [address] [place] [address] [email or web address] Historical LMR Provider 02/23/15 Obed Richardson DO [address] [place] [address] [email or web address] Referring Physician Internal Medicine 01/08/16 Dionte Carrillo, ZACKARY [address] [place] [phone] [email or web address] [email or web address] Oncology 05/30/19 Valerie Workman, FRANTZ [address] [place] [phone] [email or web address] Registered Nurse Family Medicine 06/04/20 documented as of this encounter Additional Source Comments The information contained in this document represents components of the legal health record. It is not the complete legal health record.[facility]
--- OUTSIDE RECORDS SUMMARY | 2025-09-20 22:09 | XMS_ITS | Encounter Summary ---
Author Organization [facility] Address [facility] [employer] [facility] [address] [place] [address] Phone Care Team Providers Care Well Drill Operator Rotary Drill Name Role Phone Obed Richardson DO Primary Care Provider [phone] Otilia Story MD Unavailable [phone] BigObed sanchez DO Unavailable Bigdaniel, Obed A DO Unavailable Debbi Crump DNP Unavailable [phone] Dionte Carrillo BASEBALL COACH Unavailable Valerie Workman HAZMAT TRUCK DRIVER Unavailable Bigda, Obed A DO Primary Care Provider [phone] Encounter Details Date Type Department Care Team (Late st Contact Info) Description 08/17/2018 Procedure Pass [facility] Endoscopy Admitting Dept Virtual Department [address] [place] [address] Social History Tobacco Use Types Packs/Day Years [...] 10/09/2025 1:30 PM EST Office Visit Orthoped[facility] [place] [address] [place] [address] Carlos Marquez MD [address] [place] [address] documented as of this encounter Visit Diagnoses Not on filedocumented in this encounter Additional Health Concerns Infection Onset Date Last Indicated Resolved Time CoV-Risk 09/06/2021 09/06/2021 09/16/2021 1:22 AM EST CoV-Risk Comment:Per note documentation 07/13/2023 07/13/2023 11:03 AM EDT documented as of this encounter Care Teams Well Drill Operator Rotary Drill Relationship Specialty Start Date End Date Obed Richardson DO PCP - General 02/16/15 12/19/24 Obed Richardson DO [address] [place] [address] PCP - General Internal Medicine 12/20/24 Otilia Story MD [address] [place] [address] [email or web address] Historical LMR Provider 02/23/15 Obed Richardson DO Referring Physician Internal Medicine 01/08/16 Obed Richardson DO [address] [place] [address] [email or web address] Historical LMR Provider 07/27/17 10/19/21 Debbi Crump DNP [address] [place] [phone] [email or web address] Oncology 05/24/18 05/29/19 Dionte Carrillo, ZACKARY [address] [place] [phone] [email or web address] Nurse Practitioner Oncology 05/30/19 Valerie Workman, FRANTZ [address] [place] [phone] [email or web address] Registered Nurse Family Medicine 06/04/20 documented as of this encounter Additional Source Comments The information contained in this document represents components of the legal health record. It is not the complete legal health record.[facility]
--- OUTSIDE RECORDS SUMMARY | 2025-09-20 22:09 | XMS_ITS ---
Author Organization [facility] Address [address] [place] [address] Phone Care Team Providers Care Can Dryer Name Role Phone Otilia Story MD Unavailable Obed Richardson DO Unavailable Dionte Carrillo RETAIL STORE MANAGER Unavailable Valerie Workman MARKETING TECHNOLOGY SPECIALIST Unavailable Obed Richardson DO Primary Care Provider Active Problems Problem Noted Date Diagnosed Date [...] for discharge to rehab or home - working with [facility] infusion Assessment & Plan (07/14/2023 3:09 PM [...] Breast cancer 07/01/2010 Overview (03/21/2015): Breast cancer Current Treatment and Therapy Plans No current plan information found. Past Treatment and Therapy Plans No past plan information found. Lifetime Dose Tracking * Chemical Lifetime Dose Automatic Entry Manual Entr y Invasive Cardiology Radiation Exposure 1 mGy 0 mGy 1 mGy 2. DAP 18.19 uGy-m2 0 uGy-m2 18.19 uGy-m2 Resolved Problems Problem Noted Date Diagnosed Date [...]
--- OUTSIDE RECORDS SUMMARY | 2025-09-20 22:09 | XMS_ITS | Encounter Summary ---
Author Organization [facility] Address [facility] [employer] [facility] [address] [place] [address] Phone Care Team Providers Care Teacher Vocal Name Role Phone Debra, Obed Sheehan DO Primary Care Provider [phone] Otilia Story MD Unavailable Bigdaniel, Obed Sheehan DO Unavailable Bigdaniel, Obed A DO Unavailable Debbi Crump DNP Unavailable [phone] Dionte Carrillo RUBBER EXTRUSION MACHINE OPERATOR Unavailable Valerie Workman WEATHER OBSERVER Unavailable Bigda, Obed A DO Primary Care Provider [phone] Encounter Details Date Type Department Care Team (Latest Contact Info) Description 04/27/2019 Transcribe Orders Virtual Department [address] [place] [address] Yajaira Narayanan PA-C [address]. [address] [place], [place] [phone] [email or web address] Pain in right ankle and joints of right foot (Primary Dx) Social History Tobacco Use Types [...] 10/09/2025 1:30 PM EST Office Visit [facility] [place] [address] [place] [address] Carlos Marquez MD [address] [place] [address] documented as of this encounter Results * XR ANKLE 3 OR MORE VIEWS (RIGHT) (04/28/2019 11:17 AM EDT) Anatomical Region Laterality Modality Ankle Right Radiographic Mckayla ging 04/28/2019 1:06 PM EDT Impressions 04/28/2019 1:27 PM EDT Similar appearance of post-traumatic osteoarthritis of the right ankle. POS - [id number] Edited by: Irma Dodge on 04/28/2019 1:21 PM Narrative 04/28/2019 1:27 PM EDT Right ankle 3 views. Compared 11/20/2017. Prior fixation from bimalleolar fracture again noted with fusion across the tibial fibular joint. Degenerative change across particularly the lateral aspect of the ankle joint again noted without a clear change. No clear progressive spurring, sclerosis or joint space loss. No definite effusion. Small plantar calcaneal spur and dorsal calcaneal spurring appears similar. Base of the fifth metatarsal appears intact. Procedure Note Paxton Barker MD - 04/28/2019 Right ankle 3 views. Compared 11/20/2017. Prior fixation from bimalleolarfracture again noted with fusion across the tibial fibular joint.Degenerative change across particularly the lateral aspect of the anklejoint again noted without a clear change. No clear progressive spurring,sclerosis or joint space loss. No definite effusion. Small plantarcalcaneal spur and dorsal calcaneal spurring appears similar. Base of thefifth metatarsal appears intact. IMPRESSION: Similar appearance of post-traumatic osteoarthritis of the right ankle. POS - [id number] Edited by: Irma Dodge on 04/28/2019 1:21 PM January Oracio RIDDLE IMG XR LOWER EXTREMITY Final Result documented in this encounter Visit Diagnoses Diagnosis Pain in right ankle and joints of right foot- Primary Pain in right ankle and joints of right foot documented in this encounter Additional Health Concerns Infection Onset Date Last Indicated Resolved Time CoV-Risk 09/06/2021 09/06/2021 09/16/2021 1:22 AM EST CoV-Risk Comment:Per note documentation 07/13/2023 07/13/2023 11:03 AM EDT documented as of this encounter Care Teams Teacher Vocal Relationship Specialty Start Date End Date Obed Richardson DO PCP - General 02/16/15 12/19/24 Obed Richardson DO [address] [place] [address] PCP - General Internal Medicine 12/20/24 Otilia Story MD [address] [place] [address] [email or web address] Historical LMR Provider 02/23/15 Obed Richardson DO Referring Physician Internal Medicine 01/08/16 Obed Richardson DO [address] [place] [address] [email or web address] Historical LMR Provider 07/27/17 10/19/21 Debbi Crump DNP [address] [place] [address] [email or web address] Oncology 05/24/18 05/29/19 Dionte Carrillo, ZACKARY [address] [place] [phone] [email or web address] Nurse Practitioner Oncology 05/30/19 Valerie Workman, FRANTZ [address] [place] [phone] [email or web address] Registered Nurse Family Medicine 06/04/20 documented as of this encounter Additional Source Comments The information contained in this document represents components of the legal health record. It is not the complete legal health record.[facility]
--- OUTSIDE RECORDS SUMMARY | 2025-09-20 22:09 | XMS_ITS | Encounter Summary ---
Author Organization [facility] Address [facility] [employer] [facility] [address] [place] [address] Phone Care Team Providers Care Application Software Engineer Name Role Phone Otilia Story MD Unavailable [phone] Obed Richardson DO Unavailable Dionte Carrillo FULL STACK PHP DEVELOPER Unavailable Valerie Workman PAWN BROKER Unavailable Obed Richardson DO Primary Care Provider Encounter Details Date Type Department Care Team (Late st Contact Info) Description 01/27/2025 Procedure Pass [facility] Endoscopy Admitting Dept Virtual Department [address] [place] [address] Social History Tobacco Use Types Packs/Day Years [...] 10/09/2025 1:30 PM EST Office Visit Orthopedics [address] [address] Carlos Marquez MD [address] [place] [address] [email or web address] documented as of this encounter Visit Diagnoses Not on filedocumented in this encounter Care Teams Application Software Engineer Relationship Specialty Start Date End Date Obed Richardson DO [address] [facility] [place] [address] PCP - General Internal Medicine 12/20/24 Otilia Story MD [address] [place] [phone] [email or web address] Historical LMR Provider 02/23/15 Obed Richardson DO [address] [place] [address] [email or web address] Referring Physician Internal Medicine 01/08/16 Dionte Carrillo, ZACKARY [address] [place] [phone] [email or web address] Nurse Practitioner Oncology 05/30/19 Valerie Workman NP [address] [place] [phone] [email or web address] Registered Nurse Family Medicine 06/04/20 documented as of this encounter Additional Source Comments The information contained in this document represents components of the legal health record. It is not the complete legal health record.[facility]
--- OUTSIDE RECORDS SUMMARY | 2025-09-20 22:09 | XMS_ITS | Encounter Summary ---
Author Organization [facility] Address Formerly [facility] [address] [place] [phone] Phone Care Team Providers Care Extension Professor Name Role Phone Obed Richardson DO Primary Care Provider [phone] Otilia Story MD Unavailable [phone] Obed Richardson DO Unavailable Dionte Carrillo COMMUNICATIONS LEAD Unavailable Valerie Workman [employer] ASSEMBLER Unavailable Obed Richardson DO Primary Care Provider [phone] Encounter Details Date Type Department Care Team (Latest Contact Info) Description 01/20/2022 Transcribe Orders Virtual Department [address] [place] [address] Asha Arguelles PA [address] [place] [address] [place] [address] [place] [address] Left knee pain, unspecified chronicity (Primary Dx) Social History Tobacco Use Types [...] 10/09/2025 1:30 PM EST Office Visit Orthoped[facility] [place] [address] [place] [address] Carlos Marquez MD [address] [place] [address] [email or web address] documented as of this encounter Results * XR KNEE 4 OR MORE VIEWS (LEFT) (01/21/2022 11:52 AM EDT) Anatomical Region Laterality Modality Knee Left Computed Radiogr aphy 01/21/2022 12:1 6 PM EDT Impressions 01/21/2022 12:19 PM EDT Chronic stable narrowing of the left medial compartment with additional degenerative changes present in the patellofemoral compartment. Quadriceps and infrapatellar enthesopathy. POS - [id number] Narrative 01/21/2022 12:19 PM EDT COMPARISON: Outside study dated 12/10/2020 FINDINGS: An AP upright view of both knees reveals the joint spaces to be stable in width with chronic narrowing of the left medial compartment and stable spurring along the margins of the right medial and lateral compartments. No fracture, subluxation, or other acute bony abnormality suggested. Upright tunnel, lateral, and specialized patellar views of the left knee were obtained. There is minimal patellar periarticular spurring with fairly prominent upper and lower pole anterior spurring at the quadriceps and infrapatellar tendon insertion points. No gross suprapatellar effusion or opaque loose joint body. Procedure Note Carlos Dugan MD - 01/21/2022 COMPARISON: Outside study dated 12/10/2020 FINDINGS: An AP upright view of both knees reveals the joint spaces to be stable inwidth with chronic narrowing of the left medial compartment and stablespurring along the margins of the right medial and lateral compartments.No fracture, subluxation, or other acute bony abnormality suggested. Upright tunnel, lateral, and specialized patellar views of the left kneewere obtained. There is minimal patellar periarticular spurring withfairly prominent upper and lower pole anterior spurring at the quadricepsand infrapatellar tendon insertion points. No gross suprapatellar effusionor opaque loose joint body. IMPRESSION: Chronic stable narrowing of the left medial compartment with additionaldegenerative changes present in the patellofemoral compartment. Quadricepsand infrapatellar enthesopathy. POS - [id number] us Asha Arguleles PA IMG XR LOWER EXTREMITY Shirley l Result documented in this encounter Visit Diagnoses Diagnosis Left knee pain, unspecified chronicity- Primary Left knee pain, unspecified chronicity documented in this encounter Additional Health Concerns Infection Onset Date Last Indicated Resolved Time CoV-Risk Comment:Per note documentation 07/13/2023 07/13/2023 11:03 AM EDT documented as of this encounter Care Teams Extension Professor Relationship Specialty Start Date End Date Obed Richardson DO PCP - General 02/16/15 12/19/24 Obed Richardson DO [address] [place] [address] PCP - General Internal Medicine 12/20/24 Otilia Story MD [address] [place] [address] [email or web address] Historical LMR Provider 02/23/15 Obed Richardson DO Referring Physician Internal Medicine 01/08/16 Dionte Carrillo, COMMUNICATIONS LEAD [address] [place] [phone] [email or web address] Nurse Practitioner Oncology 05/30/19 Valerie Workman NP [address] [place] [address] [email or web address] Registered Nurse Family Medicine 06/04/20 documented as of this encounter Additional Source Comments The information contained in this document represents components of the legal health record. It is not the complete legal health record.[facility]
--- OUTSIDE RECORDS SUMMARY | 2025-09-20 22:09 | XMS_ITS | Data Portability ---
Author Organization [facility], Telehealth Patient Home Address [address] [place] [address] Assessment No assessment recorded. Plan of Treatment Reminders Order Date Submit Date Provider Last Modified By Organization Details Last Modified Time Details Appointments ANNUAL EXAM 2025 01:30P RANJANA TYLER Not available Not available Not available Lab hemoglobi n A1c, QN, blood 2024 025 [facility], [address] [place] [address], [id number], 09/19/2025 12:40:32 CMP, serum or plasma 2024 025 [facility], [address] [place] [address], [address], 09/19/2025 12:40:31 CBC w/ auto diff 2024 025 [facility], [address] [place] [address], [address], 09/19/2025 12:40:32 TSH + free T4, serum 2024 025 [facility], [address] [place] [address], [address], 09/19/2025 12:40:32 iron + TIBC + ferritin, serum 2024 025 [facility], [address] [place] [address], [address], 09/19/2025 12:40:32 vitamin B12 + folate, serum or blood 2024 025 [facility], [address] [place] [address], [address], 09/19/2025 12:40:32 iron + TIBC + ferritin, serum 2024 025 [facility], [address] [place] [address], [address], 12/28/2024 15:59:51 CBC w/ auto diff 2024 025 [facility], [address] [place] [address], [address], 12/27/2024 14:46:36 CMP, serum or plasma 2023 024 [facility], [address] [place] [address], [address], 03/28/2024 13:48:31 CBC w/ auto diff 2023 024 [facility], [address] [place] [address], [address], 03/28/2024 13:48:31 lipid panel, blood 2023 024 [facility], [address] [place] [address], [address], 03/28/2024 13:48:31 vitamin D, 25-hydrox y, total, serum 2023 024 [facility], [address] [place] [address], [address], 03/28/2024 13:48:30 TSH + free T4, serum 2023 024 [facility], [address] [place] [address], [address], 03/28/2024 13:48:31 hemoglobi n A1c, QN, blood 2023 024 [facility], [address] [place] [address], [place], [address], 03/28/2024 13:48:30 Referral gastroent erologist referral 2024 025 khalida Singh MD, [address] [place] [address], [address], 12/28/2024 08:07:19 Procedures None recorded. Surgeries None recorded. Imaging None recorded. Medication Orders FeroSul 325 mg (65 mg iron) tablet 2024 025 [id number], [address], [place], [phone], 09/19/2025 12:40:53 zolpidem 5 mg tablet 2024 025 [email or web address][id number], [address], [place], [id number], 03/22/2025 12:09:18 Zestril 40 mg tablet 2024 025 [facility][id number], [address], [place], [phone], 03/22/2025 12:09:27 Patient TargetsNo targets recorded. Patient InstructionsNo instructions recorded. Reason for Referral [employer] Referral for Iron deficiency anemia needs sooner colonosocpy and endoscopy due to severe anemia Referring Physician: Asha Arguelles, Internal Medicine, Encounter Date: 12/27/2024 Results Created Date Observation Date Name Description Value Unit Range Abnormal Flag Note LastModifiedBy Organization Detail LastModifiedTime 04/18/20 24 04/18/2024 XR, wrist , 3 or more view No observ ation record ed. [email or web address] [facility] (Scheduling Dept) [address] [place], [address], 04/19/2024 13:54:07 09/15/20 24 09/15/2024 MAMMO , tj gaspar, digit al, bilat eral No observ ation record ed. [email or web address] Not Available 2023 14:46:00 03/20/20 25 03/20/2025 elect rocar diogr am, routi ne ECG, 12 leads min No observ ation record ed. [email or web address] [facility] [address] , [place], [address], 03/20/2025 15:01:11 04/06/20 25 04/06/2025 XR, knee, 3 view No observ ation record ed. [email or web address] [facility] (Imaging) [address] [facility], [place], [address], 04/07/2025 08:48:10 09/20/20 25 09/20/2025 imagi ng/di agnos tic resul t No observ ation record ed. [facility] [address] [facility] [address], [place], [address], 09/20/2025 18:13:25 Result Notes None recorded. Problems Name Problem SNOMED Code Status Onset Date Resolution Date Notes Provider Name and Address Organization Details Recorded Time Essential hypertens ion 24561651 Active 2017 Not Available [facility] 4 21:02:59 Obstructi ve sleep apnea syndrome 35436757 Active 2017 Not Available [facility] 4 21:02:59 Metabolic syndrome X 992792906 Active 2017 Not Available [facility] 4 21:02:59 Impaired fasting glycemia 047003851 Active 2017 Not Available [facility] 4 21:02:59 BRCA2 gene mutation detected 486577640 Active 2017 Not Available [facility] 4 21:02:59 Anxiety 27090414 Active 2017 Not Available [facility] 4 21:02:59 Glaucoma 43787217 Active 2017 Not Available [facility] 4 21:02:59 Hypothyro idism 68204817 Active 2020 Not Available [facility] 4 21:02:59 Hyperlipi demia 39913779 Active 2020 Not Available [facility] 4 21:02:59 Pain of left knee region 729992850296 109 Active 2021 Not Available [facility] 4 21:02:59 Osteoarth ritis of left knee joint 242309562423 109 Active 2021 Not Available [facility] 4 21:02:59 Pain of left knee joint 771035178786 107 Active 2022 Not Available [facility] 4 21:02:59 Fever with chills 903178086 Active 2022 Not Available [facility] 4 21:02:59 Generaliz ed rash 546661450 Active 2022 Not Available [facility] 4 21:02:59 Sepsis 96172867 Active 2022 Not Available [facility] 4 21:02:59 Insomnia 355980440 Active 2022 Not Available [facility] 4 21:02:59 Gout 32182814 Active 2023 RANJANA SANCHEZ [address] [place], [address], [facility] 4 15:55:01 Prostheti c joint infection 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 Procedures Surgical History Date Name Laterality Status Provider Name and Address Organization Details Recorded Time 8 Colonoscopy completed Anna Diallo [facility] 08/18/2018 11:29:44 Imaging Results None recorded. Procedure Notes None recorded. Medical Equipment None Reported. Allergies Allergen ID Allergen Name Allergen Category Reaction Reaction Severity Criticality Documentation Date Start Date Code Code System Note Provider Name and Address Organization Details Recorded Time 78105 Cephalosp lopez (substanc e) medicatio n angioedem a dyspnea itching swelling Not available Not available Not available Not available high 09/19/20252011 83542 7003 SNOMED Not Available jose - External Data Service - prod 5 03:10:58 1665 diclofena c Not available anaphylax is Not available Not available 04/02/2018 3355 RxNorm Anna Diallo barbara [facility] Internal [facility] 8 10:30:22 7714 nickel environme nt Not available Not available Not available 10/30/2023 10350 29 RxNorm Estela Marshall [facility] 4 15:38:38 Medications Name Sig Start [...] Available Not Available Not Available Fluad Quad 1591-5442(6 5yr up)(PF) 60 mcg (15 mcg x 4)/0.5mL IM syringe ADMINISTE R 0.5ML IN THE MUSCLE DIRECTED 02/20 completed Not Available Not Available Not Available Vitals Date Recorded Body height Body mass index (BMI) Body weight Heart rate Oxygen saturation Systolic And Diastolic Provider Name and Address Organization Details Last Updated DateTime 5 165.1 cm 28.3 kg/m2 67098.7 g 62 /min 96 % 150/76 mm[Hg] Benja Mcintyre [facility] 5 14:25:30 Date Recorded Body height Body mass index (BMI) Body weight Heart rate Oxygen saturation Systolic And Diastolic Provider Name and Address Organization Details Last Updated DateTime 5 165.1 cm 29.5 kg/m2 73996.6 5 g 80 /min 98 % 142/88 mm[Hg] Betina Cabrera [facility] 5 11:40:51 Date Recorded Body height Body mass index (BMI) Body weight Heart rate Oxygen saturation Systolic And Diastolic Provider Name and Address Organization Details Last Updated DateTime 4 165.1 cm 28.3 kg/m2 72004.7 g 81 /min 100 % 120/80 mm[Hg] Yaneth Banda [facility] 4 13:30:02 Date Recorded Body height Body mass index (BMI) Body weight Heart rate Oxygen saturation Systolic And Diastolic Provider Name and Address Organization Details Last Updated DateTime 5 165.1 cm 28.8 kg/m2 58475.4 8 g 86 /min 97 % 120/64 mm[Hg] Betina Cabrera [facility] 5 13:32:59 Date Recorded Body height Body mass index (BMI) Body weight Heart rate Oxygen saturation Systolic And Diastolic Provider Name and Address Organization Details Last Updated DateTime 5 165.1 cm 30 kg/m2 23254.0 6 g 87 /min 98 % 120/68 mm[Hg] Rani Pina [facility] 5 11:52:10 Social History Question Answer Notes LastModified by Organizat ion Details LastModified Time Tobacco Smoking Status Former Smoker Not Available [facility] 08/14/2020 03:36:24 What Was The Date Of Your Most Recent Tobacco Screening? 09/19/2025 [email or web address] Information not available 09/19/2025 How Many Years Have You Smoked Tobacco? 30 [id number] Information not available 08/14/2020 Sex: Female Functional Status Question Answer Note LastModified by Organization D etails LastModified Time Do you or have you ever used any other forms of tobacco or nicotine? No [email or web address] Information not available 10/30/2023 Mental Status None recorded. Family History Nothing Reported. Medical History Condition Response Coronary Artery Disease N Other N Gout N Kidney Stones N Blood Diseases N Breast Cancer N Blood Transfusion N Lung Disease N Depression N COPD N Defects or Inherited Disease N Anxiety Disorder N Muscle, Joint, or Bone Problems N Obesity N Vision or Eye Problems N Arthritis N Polyps N Infertility N Mental Disorder N Cancer N Varicosities N Stroke N Endometriosis N Bladder or Kidney Problems N High Cholesterol N Liver Disease N Headaches N Fibromyalgia N Kidney Disease N Allergies/Hayfever N Heart Problems N Hospitalizations N Thyroid Problems N GI Problems N Skin Problems N Eating Disorder N Anemia N MRSA exposure N Constipation N Mental Illness N Ovarian Cancer N Diabetes N Seizures/Epilepsy N Tuberculosis N Congestive Heart Failure (CHF) N Eczema N Diverticulitis N Abuse/Domestic Violence N Asthma N Reflux/GERD N Hepatitis N Heart Disease N Pulmonary Embolism N Hypertension N Osteoporosis N Chicken Pox N Autism Spectrum Disorder (ASD) N Gynecological HistoryNo gynecological history recorded. Obstetrics History GPAL:G 0 P 0 0 0 0 Immunizations Vaccine Type Date Status Note Provider Nam e and Address Organization Details Recorded Time Influenza, split virus, quadrivalent, preservative 1 completed Not Available [facility] 10/29/2023 21:02:59 Influenza, split virus, quadrivalent, preservative 2 completed Not Available [facility] 10/29/2023 21:02:59 Pneumococcal conjugate PCV 13 8 completed Not Available [facility] 10/29/2023 21:03:00 Influenza, split virus, quadrivalent, preservative 8 completed Not Available [facility] 10/29/2023 21:03:00 Influenza, split virus, quadrivalent, preservative 9 completed Not Available [facility] 10/29/2023 21:02:59 pneumococcal polysaccharide PPV23 9 completed Not Available [facility] 10/29/2023 21:03:00 Influenza, split virus, quadrivalent, preservative 0 completed Not Available [facility] 10/29/2023 21:03:00 Influenza, split virus, quadrivalent, preservative 0 completed Not Available [facility] 10/29/2023 21:03:00 COVID-19, mRNA, LNP-S, PF, 100 mcg/0.5mL dose or 50 mcg/0.25mL dose 1 completed Not Available [facility] 10/29/2023 21:03:00 COVID-19, mRNA, LNP-S, PF, 100 mcg/0.5mL dose or 50 mcg/0.25mL dose 1 completed Not Available [facility] 10/29/2023 21:03:00 Past Encounters Encounter ID Performer Location Encounter Start Date Encounter Closed Date Diagnosis/Indication Diagnosis SNOMED-CT Code Diagnosis ICD10 Code Diagnosis IMO Codes Diagnosis Note [id number] [facility] [address] [facility],[place] [address] 04/02/2018 10:17:56 04/02/2018 11:22:10 Hypothyroidism 08650677 E03.9 tsh elevated, will adjust the levothyrox ine from 100 to 112 Hypercholesterolemia 136 79853 E78.00 had stopped cholestero l med about a year ago cholestero l and LDL are elevated again Essential hypertension 52761825 I10 stable continue metoprolol , zestril Type 2 jj betes mellitus without complication 958261098 E11.9 very well controlled will skip a 3 month appointmen t as her dm is so well controlled f/u 6 months History of malignant neoplasm of breast 091016141 Z85.3 continues on anastrozol e without any reported sided effects Anxiety 76850895 F41.9 well controlled with venlafaxin e [id number] [facility] [address] [facility],[place] [address] 09/27/2018 10:08:11 09/27/2018 10:47:46 Hypothyroidism 75041031 E03.9 thyroid normal. will continue 112 mcg dose Hypercholesterolemia 136 41899 E78.00 very well controlled with crestor Essential hypertension 50973200 I10 stable continue metoprolol , zestril Type 2 jj betes mellitus without complication 873553095 E11.9 well controlled , even despite poor diet habits History of malignant neoplasm of breast 230840785 Z85.3 continues on anastrozol e without any reported sided effects Anxiety 45325829 F41.9 well controlled with [place]lafaxin e [id number] [facility] [address] [facility],[place] [address] 11/05/2018 13:31:37 11/05/2018 14:10:49 Pre-surgery evaluation 716383585 Z01.818 patient is cleared for proposed cataract surgery of both her right and left lens. Per DEAN protocol she is deemed a low risk for this procedure. [id number] [facility] [address] [facility],[place] [address] 04/27/2019 13:26:46 04/27/2019 14:13:44 Hypothyroidism 54704221 E03.9 tsh elevated, will adjust the levothyrox ine from 100 to 112 Hypercholesterolemia 136 83161 E78.00 had stopped cholestero l med about a year ago cholestero l and LDL are elevated again Essential hypertension 70941742 I10 stable Type 2 jj betes mellitus without complication 883710632 E11.9 very well controlled previously History of malignant neoplasm of breast 127835547 Z85.3 continues on anastrozol e without any reported sided effects Anxiety 96937804 F41.9 well controlled with venlafaxin e Adult heal th examination 572453359 Z00.00 pt already scheduled for pneumovax Screening for osteoporosis 105188239 M85.80 Pain of ri ght ankle joint 9208194408 0026104 M25.571 Body mass index 30+ - obesity 719024548 Z68.34 [id number] January WAGNER Narayanan [facility] Medicine [address] [facility],[place] [address] 10/25/2019 10:56:11 10/25/2019 11:46:52 Hypothyroidism 48757644 E03.9 normal as of 10/2019 Hypercholesterolemia 136 56604 E78.00 back on cholestero l med, with very good control Essential hypertension 25804670 I10 stable Type 2 jj betes mellitus without complication 943206024 E11.9 very well controlled History of malignant neoplasm of breast 708130154 Z85.3 continues on anastrozol e without any reported sided effects will continue until 10/[address] [facility] last done 05/2019 Anxiety 88016136 F41.9 well controlled with venlafaxin e Body mass index 30+ - obesity 395790359 Z68.[id number] [facility] [address] [facility] [address] 05/15/2020 10:19:53 05/15/2020 11:07:42 Adult health examination 426078683 Z00.00 needs to have TSH and A1c checked in three months Screening for cardiovascular system disease 024567927 Z13.6 already had her lipids done looked great doing really well Screening for malignant neoplasm of colon 060762447 Z12.11 was just seen in 2018 to have colonoscop y will be seen in three years, as she will go ever five years Screening for osteoporosis 383960563 Z13.820 just had bone density screening in 2019 she would like to wait to be rescreened in the future Screening mammography 24 356290 Z12.31 the patient had one last year in may has one scheduled for of this month [id number] [facility] [address] [facility],[place] [address] 08/21/2020 10:24:43 08/21/2020 12:36:38 Essential hypertension 45261673 I10 BP elevated will do monitor Type 2 jj betes mellitus 66059654 E11.9 doing well started back on metformin after surgery Hypothyroidism 90333475 E03.9 continue 6 days instead of [id number] [facility] [address] [facility] [address] 11/21/2020 10:24:19 11/21/2020 11:10:55 Type 2 diabetes mellitus 82531315 E11.9 doing well started back on metformin after surgery Essential hypertension 98984886 I10 BP elevated will discuss medication at next appt Obstructiv e sleep apnea syndrome 67291936 G47.33 resolved with weight loss no longer uses CPAP [id number] [facility] [address] [facility] [address] 03/18/2021 09:46:35 03/18/2021 10:23:57 Active or passive immunization 699220404 Z23 advised Adult heal th examination 800566886 Z00.00 needs to have TSH and A1c checked in three months Screening mammography 24 107042 Z12.31 needs repeat Heart murmur 46380170 R0 1.1 US for new murmur [id number] [facility] [address] [facility] [address] 04/24/2021 09:51:56 04/24/2021 11:57:58 Diastolic dysfunction 7364361 I51.9 will set up with cardiology for fu Aortic ana ve regurgitation 66595632 I35.[id number] [facility] [address] [facility] [address] 06/28/2021 08:55:30 06/28/2021 16:40:17 Essential hypertension 87706738 I10 BP elevated will discuss medication at next appt Type 2 jj betes mellitus 17447083 E11.9 excellent off of the medication Hypothyroidism 48562657 E03.9 continue 6 days instead of 7 Hyperlipidemia 34327137 E78.5 stablefoll ows with cardiology [id number] [facility] [address] [facility] [address] 12/25/2021 09:53:10 12/25/2021 16:49:49 Impaired fasting glycemia 775337060 R73.01 stable Hypothyroidism 12120759 E03.8 will reduce 5 days Type 2 jj betes mellitus 66511362 E11.9 excellent off of the medication Essential hypertension 47045498 I10 BP stable on recheck [id number] [facility] [address] [facility] [address] 01/20/2022 09:40:03 01/20/2022 11:38:15 Pain of left knee region 1134123698 17811 M25.562 will fu with XRs [id number] [facility] [address] [facility] [address] 03/21/2022 08:51:36 03/21/2022 12:23:50 Active or passive immunization 018715842 Z23 advised Adult heal th examination 025515035 Z00.00 needs to have TSH and A1c checked in three monthsBP is excellent [id number] [facility] Medicine [address] [facility] [address] 04/16/2022 08:03:36 04/16/2022 10:54:00 Pre-surgery evaluation 027447756 Z01.818 The patient was seen in the office today for pre-op evaluation . All medical conditions on patient's problem list were addressed and are currently stable, no interventi on needed at this time. Based on history and physical performed, the patient is cleared for surgery. Obstructiv e sleep apnea syndrome 47084341 G47.33 stable Type 2 jj betes mellitus 46540075 E11.9 stable Essential hypertension 16994346 I10 stable [id number] [facility] [address] [facility], [place] [address] 10/21/2022 11:26:14 10/21/2022 13:50:57 Type 2 diabetes mellitus 45008165 E11.9 stable Essential hypertension 84239990 I10 stable Hyperlipidemia 27855592 E78.2 stablefoll ows with cardiology Anxiety 27794949 F41.[id number] [facility] [address] [facility], [place] [address] 03/23/2023 13:24:23 03/23/2023 14:43:32 Active or passive immunization 098990656 Z23 advised Adult heal th examination 799518056 Z00.00 BW is excellentB P is excellent Type 2 jj betes mellitus 03623393 E11.9 stable Pain of le ft knee joint 2993912888 09951 M25.562 needs ortho referral to Dr. Carlson who is now with means[facility] [id number] [facility] [address] [facility],[place] [address] 05/19/2023 09:54:52 05/19/2023 11:38:24 Fever with chills 147013902 R50.81 fu with lab workwill call pt when results are in Generalized rash 1579299 06 R21 lotion, cortizone cream if needed [id number] [facility] Internal [facility] [address] [facility],[place] [address] 08/11/2023 14:53:06 08/11/2023 15:57:31 Sepsis 90343516 R65.20 stable Hypothyroidism 24034832 E03.8 will recheck levels in a few weeks to see if the affected by the infection [id number] Obed [address] [facility] [address] [facility],[place] [address] 10/13/2023 08:34:33 10/13/2023 15:51:17 Sepsis 71184995 R65.20 resolved Type 2 jj betes mellitus 25532516 E11.9 stable Insomnia 625419405 G47.0 9 stablecont inue on ambien [id number] Obed [address] [facility] [address] [facility],[place] [address] 10/30/2023 15:32:09 10/30/2023 16:38:28 Gout 33739543 M10.072 will set up with uric acidhaving issues with big toe, left toe Osteoarthr itis of left knee joint 5281194214 87059 M17.12 still seeing her OA L knee joint Prosthetic joint infection 313506810 T84.52XA following with ID and [id number] Obed [address] [facility] [address] [facility] [place] [address] 03/28/2024 13:23:28 03/28/2024 16:17:45 Depression screening 328275084 Z13.31 0 Adult heal th examination 214827343 Z00.00 BW is excellentB P is excellent [id number] Obed Richardson DO [facility] Internal Medicine [address] [facility], [place] [address] 12/27/2024 14:10:14 12/27/2024 14:59:44 Iron deficiency anemia 41490019 D50.0 will set up with recheck today before she leavesset up for STAT change for her colonoscop y date Essential hypertension 79116978 I10 stable Insomnia 623609644 G47.0 9 stablecont inue on ambien [id number] Obed Richardson DO [facility] Internal Medicine [address] [facility], [place] [facility] [address] 03/22/2025 11:35:26 03/22/2025 14:24:36 Pre-surgery evaluation [id number] Z01.818 The patient was seen in the office today for pre-op evaluation . All medical conditions on patient's problem list were addressed and are currently stable, no interventi on needed at this time. Based on history and physical performed, the patient is cleared for surgery. Essential hypertension [id number] I10 BP on recheck was 118/70 L arm after sittingwel l controlled at home and in office, has initial elevation due to white coat HTNmedicat ion works well for patient [id number] Obed Richardson DO [facility] Internal Medicine [address] [facility] [address] 04/24/2025 13:24:33 04/24/2025 15:28:16 Active or passive immunization [id number] Z23 advised General ex amination of patient [id number] Z00.00 [id number] BP is excellent [id number] RANJANA SANCHEZ [facility] Internal Medicine [address] [facility] [address] 09/19/2025 11:31:31 09/19/2025 13:35:15 Depression screening [id number] Z13.31 0 Essential hypertension [id number] I10 BP on recheck was 118/70 L arm after sittingwel l controlled at home and in office, has initial elevation due to white coat HTNmedicat ion works well for patient Hypothyroidism 06528329 E03.8 will recheck levels in a few weeks to see if the affected by the infection Impaired f asting glycemia [id number] R73.01 stable Iron defic iency anemia 30507656 D50.0 will set up with recheck today before she leavesset up for STAT change for her colonoscop y date Health Concerns Section Related Observation LastModified by Organization Detai ls LastModified Time None Recorded Concern Status LastModified by Organization Details LastModified Time None Recorded Advance Directives Directive None Recorded Payers Insurance Date Sequence Insurance Name Policy Number Policy [place] Covered Member ID [place] Member ID Guarantor Name 04/18/2025 2 MEDICARE B-[place]: [facility] Dixie Blunt [id number] Dixieisabella Blnut 04/18/2025 2 [facility] (MEDICARE SUPPLEMENT) [id number] Dixie Blunt [id number] Dixieisabella Blunt 04/18/2025 1 MEDICARE B-[place]: [facility] Dixie Blunt [id number] Dixie Blunt 09/16/2025 1 [facility] (MEDICARE REPLACEMENT/ ADVANTAGE - PPO) [id number] Dixie Blunt [id number] Dixie Blunt 04/18/2025 1 MEDICARE B-[place]: [facility] Dixie Blunt [id number] Dixie Blunt Notes Date Note Type Note Provider Name and Address Organization Details Recorded Time 4 text/html Annual WellnessReported by PatientSocial/Behaviora l HistoryFor diet and nutrition, patient reportshealthy diet,discussed vitamin and supplement use,discussed portion control,discussed maintaining calcium balance, anddiscussed diet improvement. For fracture risk, patient reportsno history of fractures,no recent explained fracture,no sudden unexplained fractures, andno previous musculoskeletal injuries. For physical activity, patient reportsexercises on a regular basis,recent increase in physical activity, andgood physical condition. For additional lifestyle factors, patient reportsno tobacco use,no alcohol intake, andstopped drinking alcohol.Mental Status:For depression risk, patient reportsnever feels sad, empty, or tearful,no loss of interest in activities,no significant changes in weight,no sleep disturbances or insomnia,no agitation,no loss of energy,no feelings of worthlessness or guilt,no thoughts of suicide,no history of depression, andno history of mood disorders. the patient is still having knee pain in the Left knee after the septic infectionthe ortho declined intervention due to the severity of her previous infectionthe patient is doing really with the sleep medicationwill continue on the medication RANJANA SANCHEZ [address] [place], [address], [facility] Internal [facility] 03/28/2024 14:10:10 5 text/html ROS as noted in the [facility] ER f/u the patient was in the ER after we sent her due to critically low Hgb levelthe patient reports that she is doing wellfeels better, reports that she noted she had been very tired, needed the lab work for her othro doc prior to eval for next surgery will recheck her levels todaythe patient has her colonoscopy in Jun, did put in a new order for a sooner apptneeds refill of meds feels good today, vitals are stable will fu in a few weeks RANJANA SANCHEZ [address] [place], [address], [facility] Internal Medicine 12/27/2024 14:48:08 5 text/html Pre-OpReported by PatientHPIFor risk factors, patient reportsobstructive sleep apneaandchronic cardiopulmonary condition (htn well controlledhld well controlled)but reportsno cognitive impairment,no functional impairment,no malnutrition,no frailty,able to climb a flight of stairs (exercise capacity>4 mets),non-smoker,no alcohol misuse,no illicit drug use,no chronic cardiopulmonary condition, andnot obese. For anesthesia hx, patient reportsno hx of anesthesia complications,no allergy to anesthetic agents, andno family history of anesthesia complications. For functional ability, patient reportsable to walk up stairs,able to perform heavy work around the house,no difficulty walking up hills, andable to walk 4 mph. For post-op support, patient reportsadequate assistance at home (manuelito her ). For surgery to be performed, (l total knee replacement with dr. adarsh arango). For context/condition being addressed, (left knee replacements).ROS as noted in the HPI RANJANA SANCHEZ [address] [place], [address], [facility] Internal [facility] 03/22/2025 12:15:27 5 text/html Annual WellnessReported by PatientSocial/Behaviora l HistoryFor diet and nutrition, patient reportshealthy diet,discussed vitamin and supplement use,discussed portion control,discussed maintaining calcium balance, anddiscussed diet improvement. For fracture risk, patient reportsno history of fractures,no recent explained fracture,no sudden unexplained fractures, andno previous musculoskeletal injuries. For physical activity, patient reportsexercises on a regular basis,recent increase in physical activity, andgood physical condition. For additional lifestyle factors, patient reportsno tobacco useanddrinks alcohol (mild-moderate).Mental Status:For depression risk, patient reportsnever feels sad, empty, or tearful,no loss of interest in activities,no significant changes in weight,no sleep disturbances or insomnia,no agitation,no loss of energy,no feelings of worthlessness or guilt,no thoughts of suicide,no history of depression, andno history of mood disorders.Functional AbilityFor hearing, patient reportsno loss of hearing. For vision, patient reportsno vision problems.ROS as noted in the HPI the patient had her L knee redone, feels much better it she has another appt on 05/08 for her post-opthe patient has at home PT then transitions to in office PT the patient reports that she feels great RANJANA SANCHEZ [address] [place], [address], [facility] Internal Medicine 04/24/2025 13:53:49 5 text/html ROS as noted in the HPI [...] f/u with lab work results RANJANA SANCHEZ [address] [place], [address], [facility] Internal Medicine 09/19/2025 12:41:20 OBGyn Episode No OBEpisode recorded.
== END 2025-09-20 14:12 ==
LOC: HO.MANLDS 14:11
PROVIDERS: Visit Provider Physician Assistant
DX: D50.0 Iron deficiency anemia secondary to blood loss (chronic) (principal); E03.8 Other specified hypothyroidism; R73.01 Impaired fasting glucose
CPT/HCPCS: 36415; 80053; 82607; 82728; 82746; 83036; 83540; 84439; 84443; 85025